=== PATIENT | female | born 1940 | race Caucasian/White ===

== ENCOUNTER 2016-10-20 09:57 | Inpatient (IN) | payer MEDICARE, OTHER ==
[~2016-10-20] VITALS: Ht 149.9 cm; Wt 68.5 kg
[2016-10-20] MEDS: LEVOTHYROXINE 0.075 MG TAB (75 MCG) PO SCH ×2 (06:00→16:07)
[2016-10-20] MEDS: SPIRONOLACTONE 25 MG TAB PO SCH (09:00)
[2016-10-20] MEDS: VITAMIN D 1,000 INTERNATIONAL UNITS TABLET PO SCH (09:00)
[2016-10-20] MEDS: FUROSEMIDE 40 MG TAB PO SCH (09:00)
[2016-10-20] MEDS: ASPIRIN 81 MG ENTERIC TAB PO SCH (09:00)
[2016-10-20] MEDS: MULTIVITAMINS/MINERALS THERAP 1 TAB PO SCH (09:00)
[~2016-10-20 09:57] MED LIST: /AMLO25TA PO; ACCU40TA PO; ADV250INH INH; ADV500INH INH; ALB2.5NEB INH; ALBU2TA GT; ALDA25TA2 PO; AMLO5TAB2 PO; ASPI81TA85 PO; CEFD1CAP8 PO; COMBAER6 INH; COMBIN INH; DOXA1TAB41 PO; DOXA2TAB PO; DUONSOL NEB; IPRA2IN INH; LASI40TA PO; LESC20CA PO; LEVO100T4 PO; LEVO75TA34 PO; LIVA1TAB PO; MUCI600T34 PO; NYST50SS SS; OXYGEN; PRED20TAB PO; QUIN40TA4 PO; SPIR1CAP INH; SPIR25TA2 PO; TYLE325T5 PO; TYLE650T30 PO; VITA2000 PO
[2016-10-20] MEDS ORDERED: VITA200016 PO (10:35)
[2016-10-20] MEDS ORDERED: ASPI1TAB PO (10:35)
[2016-10-20] MEDS ORDERED: DOXA1TAB71 PO (10:35)
[2016-10-20] MEDS ORDERED: SPIR25TA2 PO (10:35)
[2016-10-20] MEDS ORDERED: BREO1INH3 INH (10:35)
[2016-10-20] MEDS ORDERED: INCR1INH INH (10:35)
[2016-10-20] MEDS ORDERED: SYNT75TA PO (10:35)
[2016-10-20] MEDS ORDERED: PRED5TA PO (10:35)
[2016-10-20] MEDS ORDERED: [UNRECOGNIZED DRUG - CODE] PO (10:35)
[2016-10-20] MEDS ORDERED: OXYGEN (10:35)
[2016-10-20] MEDS ORDERED: LORA-376 PO (10:35)
[2016-10-20] MEDS ORDERED: CEFT500T3 PO (10:36)
[2016-10-20] MEDS ORDERED: PRED10TA PO (10:36)
[2016-10-20] MEDS ORDERED: methylPREDNISolone INJ 125 MG/2 ML VIAL (J2930) IV ONE (11:00)
[2016-10-20 11:37] LABS: MEAN CORPUSCULAR HEMOGLOBIN 29.9 pg (27.0-33.0); WHITE BLOOD COUNT 18.6 K/mm3 (4.0-10.0)
[2016-10-20 11:38] LABS: BASO # 0.1 K/mm3 (0.0-0.2); BASO % 0.3 % (0.0-1.0); EOS # 0.1 K/mm3 (0.0-0.50); EOS % 0.3 % (0.0-3.0); LARGE UNSTAINED CELL # 0.1 K/mm3 (0.0-0.4); LARGE UNSTAINED CELL % 0.5 % (0.0-4.0); LYMPH # 0.6 K/mm3 (1.5-4.5); MEAN CORPUSCULAR HGB CONC 29.6 g/dl (32.0-36.5); MONO # 0.5 K/mm3 (0.0-0.8); MONO % 2.9 % (0.0-5.0); NEUTROPHILS # 17.3 K/mm3 (1.8-7.7); PLATELET COUNT, AUTOMATED 219 k/mm3 (150-450); RED CELL DISTRIBUTION WIDTH 12.4 % (11.5-14.5)
[2016-10-20] MEDS: IPRATROPIUM 0.5MG/ALBUTEROL 2.5MG INH SOL UD 3ML (DUONEB)(J7620) NEB PRN ×3 (11:39→11:52)
[2016-10-20 11:40] LABS: ABG BASE EXCESS 23.8 (-2.0-2.0); ABG PARTIAL PRESSURE O2 63.2 mmHg (75.0-100.0); ABG STANDARD HCO3 48.9 MEQ/L (22.0-26.0); ABG TOTAL CO2 64.2 MEQ/L (23.0-31.0); ABG pH (ARTERIAL) 7.263 UNITS (7.350-7.450)
[2016-10-20 11:44] LABS: ABG PARTIAL PRESSURE CO2 135.9 mmHg (35.0-45.0)
[2016-10-20 11:47] LABS: BLOOD UREA NITROGEN 29 MG/DL (7-18); CALCIUM LEVEL 9.5 MG/DL (8.8-10.2); CHLORIDE LEVEL 84 MEQ/L (98-107); CREATININE FOR GFR 0.67 MG/DL (0.55-1.02); GLOMERULAR FILTRATION RATE > 60.0 (>39); GLUCOSE, FASTING 208 MG/DL (83-110); POTASSIUM SERUM 4.7 MEQ/L (3.5-5.1); SODIUM LEVEL 136 MEQ/L (136-145)
--- NOTE | 2016-10-20 11:48 | REP ---
AP PORTABLE CHEST: 10/20/2016 CLINICAL HISTORY: Dyspnea, cough. COMPARISON: 11/14/2014, 11/08/2014, 07/23/2014. FINDINGS: Lungs are hyperinflated. There is flattening of the diaphragms basilar fibrotic changes and COPD are noted. There are heavier fibrotic changes in the right than left base. Question of a small focal infiltrate or nodule in the right base. No effusion or pneumothorax. Heart not grossly enlarged. There is no vascular redistribution or edema. The aorta is calcified at the arch without aneurysm. Airway intact. Bony thorax without focal lesion. IMPRESSION: 1. 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 A superimposed patchy zone of infiltrate or nodular density right base. No effusion or pulmonary edema. Signed by Sergio Rign MD 10/20/2016 05:15 P
[2016-10-20 11:52] LABS: ALBUMIN 3.3 GM/DL (3.2-5.2); ALBUMIN/GLOBULIN RATIO 0.92 (1.00-1.93); BILIRUBIN,DIRECT 0.2 MG/DL (0.0-0.2); BILIRUBIN,TOTAL 0.7 MG/DL (0.2-1.0); TOTAL PROTEIN 6.9 GM/DL (6.4-8.2)
[2016-10-20 12:11] LABS: ANION GAP 2 MEQ/L (8-16)
[2016-10-20 12:14] LABS: CARBON DIOXIDE LEVEL 50 MEQ/L (21-32)
[2016-10-20] MEDS ORDERED: IPRATROPIUM 0.5MG/ALBUTEROL 2.5MG INH SOL UD 3ML (DUONEB)(J7620) NEB PRN (12:45)
[2016-10-20] MEDS ORDERED: PIPERACILLIN/TAZOBACTAM SOD 2.25 GM in D5W MINI-BAG PLUS 50 ML IV ONE (13:00)
[2016-10-20] MEDS: ACETAMINOPHEN TAB 650MG DOSE (2X325MG) PO PRN ×2 (13:01→19:57)
[2016-10-20] MEDS ORDERED: PRED20TA PO (13:08)
[2016-10-20] MEDS ORDERED: COLON CARE PO (13:08)
[2016-10-20] MEDS ORDERED: ASPI81TA21 PO (13:12)
[2016-10-20] MEDS ORDERED: VITMTA PO (13:12)
[2016-10-20] MEDS ORDERED: ROBA100S5 PO (13:15)
[2016-10-20] MEDS ORDERED: IPRASOL4 INH (13:17)
[2016-10-20 13:20] LABS: ABG BASE EXCESS 24.3 (-2.0-2.0); ABG HCO3 61.4 MEQ/L (22.0-26.0); ABG PARTIAL PRESSURE CO2 144.8 mmHg (35.0-45.0); ABG PARTIAL PRESSURE O2 70.9 mmHg (75.0-100.0); ABG STANDARD HCO3 49.7 MEQ/L (22.0-26.0); ABG TOTAL CO2 65.8 MEQ/L (23.0-31.0); ABG pH (ARTERIAL) 7.245 UNITS (7.350-7.450)
--- NOTE | 2016-10-20 14:05 | HPEPDOC ---
Medical History and Physical Date of Admission Oct 20, 2016 at 12:31 History and Physical ATTENDING: Dr. Tato Villanueva PCP: Dr Islas CC: SOB HPI: 75yoF with a past medical history significant for COPD, O2 dependent (5-6L) , uses BIPAP at home. Pt was recently treated as per PCP for COPD exacerbation as outpt with po ceftin and prednisone. Her dtr states there had been some improvement but pt was still having some chills and coughing yellow sputum. Today she got up and felt very fatigued. SOB was worse, EMS was called. O2 sat was found to be 81% on her usual 6L NC. Pt baseline 81-92. Nebs were given with minimal improvement. Denies any fevers, LEMA, CP, palpitations, abdominal pain, N/V/D or changes in bowel or bladder habits. Upon presentation to the hospital the patient was found to have acute on chronic respiratory failure, thus the hospitalist team was consulted. PMHx: COPD O2 5-6L/BIPAP. PANNY- Jazzy. Chronic resp failure HTN Hypothyroid Prior smoker Quit 06/19 HLD Diverticulosis Vit D Def NIDDM PSHX: ALXEI/BSO Appendectomy Colonoscopy 2001 SOCHX: Resides in: [place] Marital Status: Employment: Housewife Tobacco use: Quit 06/19 ETOH: denies Illicit Drugs: Denies Recent travel: denies Advanced directives: MOLST DNI per FAMHX: Mother: HTN Father: HTN Siblings: HTN ROS: Pt is on BIPAP in ED, denies pain. States breathing comfortable at this time. PE: GEN: 75yoF, appears stated age. Responds to voice. On BIPAP in ED. HEENT: Normocephalic, atraumatic. Pupils are equal, round, and reactive to light. Extraocular movements are intact. No nystagmus appreciated. Sclera are nonicteric. Conjunctiva without injection. Nose midline. Nasal turbinates without bogginess. No facial asymmetry. Moist mucous membranes. Dentition fair. Pharynx pink and moist, no cobblestoning. Neck supple, trachea midline. No lymphadenopathy or thyromegaly appreciated. CHEST: Regular rate and rhythm, +S1, +S2 LUNGS: Decreased BS bilaterally. Diffuse insp/exp wheezes, no rales, or rhonchi noted anteriorly. BIPAP. ABD: Round, soft, non-tender, non-distended. +Bowel sounds throughout. No rebound or guarding. No costovertebral angle tenderness. EXT: Pulses 2+ bilaterally dorsalis pedis and radial. No lower extremity edema appreciated. SKIN: [place], dry, warm. Capillary refill <2sec. No rashes. NEURO: Alert to voice. No focal deficits appreciated. 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 A superimposed patchy zone of infiltrate or nodular density right base. No effusion or pulmonary edema. EKG: SR. LAE, 93bpm. BLOOD CULTURES: x 2 pending A&P: 75yoF with a past medical history significant for COPD, O2 dependent (5-6L) , uses BIPAP at home. Pt was recently treated as per PCP for COPD exacerbation as outpt with po ceftin and prednisone. Her dtr states there had been some improvement but pt was still having some chills and coughing yellow sputum. Today she got up and felt very fatigued. SOB was worse, EMS was called. O2 sat was found to be 81% on her usual 6L NC. Pt baseline 81-92. Nebs were given with minimal improvement. The patient will be admitted to ICU for at least [address] Villanueva's service. Pt is discussed with Dr Archer. Acute on chronic respiratory Failure. Pulmonary to assist with BIPAP. Sputum Cx , resp panel, BC pending. O2/Nebs/IV Rocephin, Zithromax. IV Solumedrol. COPD. as above. Hypothyroid. Cont with Supplement. HTN. DVT prophylaxis. SQ Heparin states the patient is a DNI- Copy of [facility] requested Vital Signs Vital Signs Date Time Temp Pulse Resp B/P Pulse Ox O2 Delivery O2 Flow Rate FiO2 10/20/16 13:00 162/74 10/20/16 12:46 91 91 10/20/16 12:45 99.5 10/20/16 11:48 60 10/20/16 10:30 Nasal Cannula 5 10/20/16 10:13 20 Laboratory Data Labs 24H Laboratory Tests 2 10/20/16 11:14: Aspartate Amino Transf (AST/SGOT) 21, Alanine Aminotransferase (ALT/SGPT) 32, Alkaline Phosphatase 81, Total Bilirubin 0.7, Direct Bilirubin 0.2, Albumin 3.3 , Albumin/Globulin Ratio 0.92L, Anion Gap 2L, B-Type Natriuretic Peptide 82.2, White Blood Count 18.6H, Red Blood Count 5.24, Hemoglobin 15.7, Hematocrit 52.9H , Mean Corpuscular Volume 101.0H, Mean Corpuscular Hemoglobin 29.9, Mean Corpuscular Hemoglobin Concent 29.6L, Red Cell Distribution Width 12.4, Platelet Count 219, Neutrophils (%) (Auto) 93.0H, Lymphocytes (%) (Auto) 3.0L, Monocytes (%) (Auto) 2.9, Eosinophils (%) (Auto) 0.3, Basophils (%) (Auto) 0.3, Neutrophils # (Auto) 17.3H, Lymphocytes # (Auto) 0.6L, Monocytes # (Auto) 0.5, Eosinophils # (Auto) 0.1, Basophils # (Auto) 0.1, Blood Urea Nitrogen 29H, Creatinine 0.67, Sodium Level 136, Potassium Level 4.7, Chloride Level 84L, Carbon Dioxide Level 50H, Calcium Level 9.5, Total Creatine Kinase 56, Creatine Kinase MB 6.0H, Creatine Kinase MB Relative Index 10.71H, Glomerular Filtration Rate > 60.0, Lactic Acid Level 0.7, Large Unclassified Cells # 0.1, Large Unclassified Cells % 0.5, Thyroid Stimulating Hormone (TSH) 0.409, Total Protein 6.9, Troponin I 0.06 10/20/16 11:36: Arterial Blood pH 7.263L, Arterial Blood Partial Pressure CO2 135.9*H, Arterial Blood Partial Pressure O2 63.2L, Arterial Blood Total CO2 64.2H, Arterial Blood HCO3 60.0H, Arterial Blood Base Excess 23.8H, Arterial Blood Oxygen Saturation 90.3L, Blood Gas Bicarbonate Standard 48.9H 10/20/16 13:10: Arterial Blood pH 7.245*L, Arterial Blood Partial Pressure CO2 144.8*H, Arterial Blood Partial Pressure O2 70.9L, Arterial Blood Total CO2 65.8H, Arterial Blood HCO3 61.4H, Arterial Blood Base Excess 24.3H, Arterial Blood Oxygen Saturation 92.5L, Blood Gas Bicarbonate Standard 49.7H CBC/BMP Laboratory Tests 10/20/16 11:14 Calcium Level 9.5, Total Creatine Kinase 56, Red Blood Count 5.24, Mean Corpuscular Volume 101.0 H, Mean Corpuscular Hemoglobin 29.9, Mean Corpuscular Hemoglobin Concent 29.6 L, Red Cell Distribution Width 12.4, Neutrophils (%) ( Auto) 93.0 H, Lymphocytes (%) (Auto) 3.0 L, Monocytes (%) (Auto) 2.9, Eosinophils (%) (Auto) 0.3, Basophils (%) (Auto) 0.3, Neutrophils # (Auto) 17.3 H, Lymphocytes # (Auto) 0.6 L, Monocytes # (Auto) 0.5, Eosinophils # (Auto) 0.1 , Basophils # (Auto) 0.1 Microbiology Microbiology 10/20/16 Blood Culture, Received Pending 10/20/16 Blood Culture, Received Pending Home Medications Scheduled (Incruse Ellipta) 62.5 Mcg/Inh Inh 62.5 MCG INH DAILY ([colon care]) 200 MG PO DAILY (Robafen) 100 Mg/5 Ml Syp 10 ML PO BID 7AM,11AM Acetaminophen (Tylenol) 325 Mg Tab 650 MG PO Q4HP Albuterol/Ipratropium (Ipratropium Olmitz/Albut 0.5-2.5 (3) mg/3Ml) 1 Gareth Gareth 1 GARETH INH QID 7AM,11AM,3PM,7PM Aspirin (Aspir-Low) 81 Mg Tab 81 MG PO DAILY Cefuroxime Axetil (Ceftin) 500 Mg Tab 500 MG PO BID FILLED ON 10/14/16 FOR A 10 DAY SUPPPLY Doxazosin Mesylate (Doxazosin) 2 Mg Tab 2 MG PO DAILY Fluticasone/Vilanterol (Breo Ellipta 200-25 Mcg/INH) 1 Inh Inh 1 PUFF INH DAILY Furosemide (Lasix) 40 Mg Tab 40 MG PO DAILY Levothyroxine Sodium (Synthroid) 75 Mcg Tab 75 MCG PO QAM Multivitamins *[facility] STOCKED* (Thera M Plus *[facility] STOCKED*) 1 Tab Tab 1 TAB PO DAILY Prednisone (Prednisone) 20 Mg Tab 20 MG PO BID FILLED 10/07/16 FOR 14 DAY SUPPLY Spironolactone (Spironolactone) 25 Mg Tab 25 MG PO DAILY Vitamin D (Vitamin D) 2,000 Unit Cap 2,000 UNIT PO DAILY Scheduled PRN Lorazepam (Lorazepam) 0.5 Mg Tab 0.5 MG PO Q4H PRN PRN ANXIETY/AGITATION Allergies Coded Allergies: Atorvastatin (Unverified Adverse Reaction, Intermediate, MYALGIAS, 10/20/16 ) Pseudoephedrine (Unverified Adverse Reaction, Mild, FELT JITTERY, 10/12/12) Katie Cash Oct 20, 2016 14:05
--- NOTE | 2016-10-20 14:46 | ECGEPIP ---
Stationary ECG Study [facility] - ED Test Date: 2016-10-20 Pat Name: BRENNEN JARRETT Department: Room: [place] [address] Gender: F Appointment Specialist: jj : 1940 Requested By: Sugey Velasquez Order Number: [id number] Reading MD: Kemal Palmer Measurements Intervals [place] Rate: 93 P: 88 VA: 143 QRS: 87 QRSD: 94 T: 96 QT: 314 QTc: 392 Interpretive Statements SINUS RHYTHM POSSIBLE LEFT ATRIAL ENLARGEMENT BORDERLINE RIGHT AXIS DEVIATION SIMILAR TO 11/08/14 Electronically Signed On 10-20-2016 14:46:38 EDT by Kemal Palmer
--- NOTE | 2016-10-20 14:54 | CCN ---
DATE OF SERVICE: 10/20/2016 I was called the emergency department to evaluate this 75-year-old female who had been ill with infectious symptoms on an outpatient basis, being treated with steroid and antibiotic therapy. Symptoms worsened. An ambulance was summoned. She was found hypoxemic, placed on a nonrebreather mask, and brought to the emergency department. In the emergency department, she was placed on noninvasive positive pressure ventilation, and arterial blood gases are very abnormal. The patient is known to our service, following with Dr. Purcell on an outpatient basis for advanced obstructive airways disease. She has had prior admissions for acute hypoxic hypercarbic respiratory failure, the last in 2014. Most recent spirometric measures showed an FEV-1 of 0.33 or 19% of predicted. She is on bilevel therapy at night with supplemental oxygen (12 over 76 liters) for obstructive sleep apnea syndrome. Inhaled therapy on an ongoing basis includes Breo, Incruse, and DuoNebs. She is on oxygen at home at 4 liters. At bedside, her temperature is 99.5, pulse rate is 91, respirations 20, blood pressure 162/74. She is semi-responsive. HEENT: Oral and nasal mucosa are pink and moist. There is no stridor over the trachea. No adenopathy in the neck. Jugular veins are difficult to appreciate. There is a brisk carotid upstroke. Heart sounds are regular, distant. Breath sounds markedly diminished bilaterally. Expiratory phase is quite prolonged. The chest is increased in its AP diameter. There is a fine mid end-expiratory wheeze bilaterally. Accessory muscles are engaged during respiratory effort at rest. Abdomen is soft, obese, intact bowel sounds. Extremities: Show trace edema. Peripheral pulses are palpable times four. DIAGNOSTIC STUDIES: White cell count is 18.6 with 93% neutrophils, no bands are reported, hemoglobin 15.7, hematocrit 52.9, platelet count is 219,000. Her electrolytes are sodium 136, potassium 4.7, chloride 84, CO2 50, BUN 29, creatinine 0.64, glucose 208. The CPK is 6, MB fraction 10, troponin is less than 0.06. BNP 82, lactic acid 0.7. An arterial blood gas on admission showed a pH 7.26, pCO2 135.9, pO2 63. Subsequently, was placed on noninvasive ventilation. Most recent blood gas shows pH 7.24, pCO2 144, pO2 70. Chest x-ray imaging was reviewed. There is some change in the right lower lobe, difficult to determine if this is acute or chronic. Appears to have been present on most recent image in this system from 2014. There is no cardiomegaly. No obvious interstitial prominence. The diaphragms are quite flat. The primary problem requiring critical attention is acute hypoxic hypercarbic respiratory failure. We will adjust the noninvasive positive pressure ventilator to optimize the pressure window and recheck arterial blood gases. The patient has expressed and the family has reiterated her desire not to undergo intubation, mechanical ventilatory support. I have mentioned to them that we will do the best we can with the noninvasive ventilator. Abnormal x-rays. It is possible we may be dealing with a right lower lobe pneumonia. The patient was on antibiotics at home. Will initiate azithromycin with the ceftriaxone. She got a single dose of Zosyn in the emergency room (ER). Bronchospasm. On her previous admission in 2014, she required nebulized therapy with heliox to effect reversal of her bronchoconstriction. We will initiate this same protocol. Deep venous thrombosis (DVT) and ulcer prophylaxis will be addressed. The patient's condition is critical. Will facilitate transfer now to the intensive care unit. 88 minutes was spent in the provision of bedside critical care and coordination. The family has been updated on her status.
[2016-10-20] MEDS: methylPREDNISolone INJ 125 MG/2 ML VIAL (J2930) IV SCH ×2 (15:00→22:57)
[2016-10-20] MEDS: cefTRIAXone SOD 1 GM in D5W MINI-BAG PLUS 50 ML IV SCH (15:00)
[2016-10-20] MEDS: AZITHROMYCIN INJ 500 MG, VIAL MATE ADAPTER 1 EACH in D5W 250 ML IV SCH (15:00)
[2016-10-20] MEDS: IPRATROPIUM 0.5MG/ALBUTEROL 2.5MG INH SOL UD 3ML (DUONEB)(J7620) NEB SCH ×2 (15:41→19:46)
[2016-10-20 15:45] LABS: ABG BASE EXCESS 25.2 (-2.0-2.0); ABG PARTIAL PRESSURE O2 74.5 mmHg (75.0-100.0); ABG STANDARD HCO3 50.7 MEQ/L (22.0-26.0); ABG TOTAL CO2 65.1 MEQ/L (23.0-31.0); ABG pH (ARTERIAL) 7.275 UNITS (7.350-7.450)
[2016-10-20 15:46] LABS: ABG PARTIAL PRESSURE CO2 134.3 mmHg (35.0-45.0)
[2016-10-20 16:00] VITALS: BP 140/64
[2016-10-20 17:00] VITALS: BP 108/53
[2016-10-20 18:00] VITALS: BP 109/69
[2016-10-20 19:00] VITALS: BP 110/61
[2016-10-20] MEDS: HEPARIN SOD (PORCINE) 5000 UNITS/ML VIAL SQ SCH (19:57)
[2016-10-20 20:00] VITALS: BP 112/80
[2016-10-20 22:00] VITALS: BP 105/64
[2016-10-21] VITALS (18 sets, daily range): BP systolic 96–139; BP diastolic 53–85; O2SAT 90
[2016-10-21] MEDS: IPRATROPIUM 0.5MG/ALBUTEROL 2.5MG INH SOL UD 3ML (DUONEB)(J7620) NEB SCH ×4 (01:38→19:39)
[2016-10-21] MEDS: ACETAMINOPHEN TAB 650MG DOSE (2X325MG) PO PRN ×2 (03:33→21:03)
[2016-10-21 06:05] LABS: ABG BASE EXCESS 23.2 (-2.0-2.0); ABG HCO3 55.8 MEQ/L (22.0-26.0); ABG PARTIAL PRESSURE O2 77.5 mmHg (75.0-100.0); ABG STANDARD HCO3 48.3 MEQ/L (22.0-26.0); ABG TOTAL CO2 58.9 MEQ/L (23.0-31.0); ABG pH (ARTERIAL) 7.353 UNITS (7.350-7.450)
[2016-10-21 06:08] LABS: ABG PARTIAL PRESSURE CO2 102.6 mmHg (35.0-45.0)
[2016-10-21] MEDS: LEVOTHYROXINE 0.075 MG TAB (75 MCG) PO SCH (06:08)
[2016-10-21] MEDS: methylPREDNISolone INJ 125 MG/2 ML VIAL (J2930) IV SCH ×3 (06:11→22:59)
[2016-10-21 06:21] LABS: BASO % 0.2 % (0.0-1.0); EOS % 0.3 % (0.0-3.0); LARGE UNSTAINED CELL % 0.3 % (0.0-4.0); LYMPH # 0.5 K/mm3 (1.5-4.5); LYMPH % 3.7 % (24.0-44.0); MEAN CORPUSCULAR HEMOGLOBIN 30.1 pg (27.0-33.0); MEAN CORPUSCULAR HGB CONC 29.9 g/dl (32.0-36.5); MEAN CORPUSCULAR VOLUME 100.5 fl (80.0-96.0); MONO # 0.3 K/mm3 (0.0-0.8); MONO % 2.7 % (0.0-5.0); NEUTROPHILS # 11.5 K/mm3 (1.8-7.7); NEUTROPHILS % 92.7 % (36.0-66.0); PLATELET COUNT, AUTOMATED 178 k/mm3 (150-450); RED CELL DISTRIBUTION WIDTH 12.4 % (11.5-14.5); WHITE BLOOD COUNT 12.4 K/mm3 (4.0-10.0)
[2016-10-21 06:39] LABS: ALBUMIN 2.8 GM/DL (3.2-5.2); ALBUMIN/GLOBULIN RATIO 0.88 (1.00-1.93); ALKALINE PHOSPHATASE 68 U/L (45-117); ALT/SGPT 35 U/L (12-78); AST/SGOT 19 U/L (15-37); BILIRUBIN,TOTAL 0.5 MG/DL (0.2-1.0); BLOOD UREA NITROGEN 25 MG/DL (7-18); CALCIUM LEVEL 8.9 MG/DL (8.8-10.2); CHLORIDE LEVEL 85 MEQ/L (98-107); CHOLESTEROL LEVEL 187 MG/DL (< 200); GLOMERULAR FILTRATION RATE > 60.0 (>39); GLUCOSE, FASTING 201 MG/DL (83-110); PHOSPHORUS LEVEL 2.6 MG/DL (2.5-4.9); POTASSIUM SERUM 4.8 MEQ/L (3.5-5.1); SODIUM LEVEL 135 MEQ/L (136-145); TRIGLYCERIDES LEVEL 124 MG/DL (<150)
[2016-10-21 07:02] LABS: ANION GAP 4 MEQ/L (8-16); CARBON DIOXIDE LEVEL 46 MEQ/L (21-32)
--- NOTE | 2016-10-21 08:58 | REP ---
REASON: Respiratory failure. COMPARISON: Multiples, the latest 10/20/2016 also a portable. The technique utilized in obtaining the radiograph has magnified the cardiac silhouette and accentuated the interstitial markings. Persistent bibasilar patchy opacities are noted status quo. The cardiomediastinal silhouette is unchanged. There are no new opacities since the last exam. There is no change in the osseous structures. IMPRESSION: No change from yesterday. Signed by José Kong DO 10/21/2016 09:02 A
[2016-10-21] MEDS: HEPARIN SOD (PORCINE) 5000 UNITS/ML VIAL SQ SCH ×2 (09:28→21:03)
[2016-10-21] MEDS: MULTIVITAMINS/MINERALS THERAP 1 TAB PO SCH (09:28)
[2016-10-21] MEDS: FUROSEMIDE 40 MG TAB PO SCH (09:28)
[2016-10-21] MEDS: ASPIRIN 81 MG ENTERIC TAB PO SCH (09:28)
[2016-10-21] MEDS: VITAMIN D 1,000 INTERNATIONAL UNITS TABLET PO SCH (09:28)
[2016-10-21] MEDS: PANTOPRAZOLE 40MG INJ (PROTONIX) (C9113) IV SCH (09:28)
[2016-10-21] MEDS: SPIRONOLACTONE 25 MG TAB PO SCH (09:29)
[2016-10-21] MEDS: guaiFENesin ER 600 MG TAB PO SCH ×2 (12:33→21:03)
[2016-10-21] MEDS ORDERED: SLF 3 ML SYR IV PRN (14:15)
[2016-10-21] MEDS: AZITHROMYCIN INJ 500 MG, VIAL MATE ADAPTER 1 EACH in D5W 250 ML IV SCH (14:21)
--- NOTE | 2016-10-21 14:21 | CCN ---
DATE: 10/21/2016 CRITICAL CARE NOTE: The patient is seen in the intensive care unit on noninvasive positive pressure ventilation, more responsive, tolerating the mask well. She is able to speak in short sentences and is complaining of hunger. At bedside her temperature is 100.8, pulse rate 80, respirations 16, blood pressure 137/63, oxygen saturation 89% on 45% oxygen delivered through the noninvasive ventilator. Intake and output for the past 24 hours: 50 mL in, 300 mL out, since midnight 120 in, 0 out. She is ill-appearing. Oral mucosa are pink. Neck is supple. No meningismus. Heart sounds are regular. Breath sounds diminished bilaterally. There is some expiratory wheeze in the right upper lobe. Abdomen is soft with intact bowel sounds. Extremities show some edema. DIAGNOSTIC STUDIES: White cell count is down to 12.4, hemoglobin 14.7, hematocrit 49.1, platelet count is down to 178. Differential white cell count shows 92% neutrophils. Electrolytes are sodium 135, potassium 4.8, chloride 85, CO2 46, BUN 25, creatinine 0.6, glucose 201. Arterial blood gases show pH 7.35, pCO2 102, pO2 77. Chest x-ray continues to show hyperinflation and some chronic changes in the right base. Sputum studies are pending. The primary problem requiring critical attention is acute hypoxic hypercarbic respiratory failure. The patient has responded to noninvasive positive pressure ventilation and we will reduce the pressures and allow her off the mask for periods of time to eat. Bronchospasm. The patient's airways are more patent this morning with use of EzPAP and heliox for delivery. Will continue this approach. Pneumonia / respiratory infection. The patient's respiratory virus panel reveals respiratory syncytial virus. We are empirically treating her with ceftriaxone and azithromycin and this is day #2. Will continue broad-spectrum antibiotic therapy. Deep venous thrombosis (DVT) and ulcer prophylaxis are in place. Condition remains critical. Prognosis is guarded. 58 minutes was spent in the provision of bedside critical care and coordination.
--- NOTE | 2016-10-21 15:02 | IPNPDOC ---
Subjective Date Seen The patient was seen on 10/21/16. Subjective Chief Complaint/HPI The patient is a 75-year-old female admitted with a reason for visit of Respiratory Failure Acute And Chronic. Events since last encounter Patient is doing better today, although very fatigued after being off of BiPAP for eating. Denies any fevers, chills, sweats, chest pain her chest pressure. Constitutional: Denies: Chills, Fever, Malaise Pulmonary: Reports: Cough, Dyspnea Cardiovascular: Denies: Chest Pain, Palpitations Gastrointestinal: Denies: Abdominal Pain, Constipation, Diarrhea, Nausea, Vomiting Genitourinary: Denies: Dysuria Other systems 10 point review systems otherwise negative Objective Physical Examination General Exam: Positive: Alert, Cooperative, No Acute Distress, Other (on BiPAP) Eye Exam: Positive: Conjunctiva & lids normal ENT Exam: Positive: Mucous membr. moist/pink Neck Exam: Positive: Supple, Negative: JVD, thyromegaly Chest Exam: Positive: Diminished, Wheezing (bilateral wheezing), Negative: Clear to auscultation, Normal air movement (decreased air movement throughout) Heart Exam: Positive: Murmurs (one out of 6 systolic ejection murmur), Normal S1, Normal S2, Rate Normal Abdomen Exam: Positive: Normal bowel sounds, Soft, Negative: Hepatospenomegaly, Tenderness Extremity Exam: Positive: Normal pulses, Negative: Clubbing, Cyanosis, Edema Skin Exam: Positive: Nl turgor and temperature Psych Exam: Positive: Mental status NL, Mood NL, Oriented x 3 Assessment /Plan Problems (1) Acute on chronic respiratory failure with hypercapnia Status: Acute Problem Specific Plan: Consult Specialist Problem Text: Patient is here with acute on chronic hypercapnic respiratory failure secondary to RSV, and possible right lower lobe pneumonia. She has been requiring BiPAP, and is currently being co-managed by critical care. Her respiratory status is improved somewhat today, and she has been able to come off of BiPAP in order to eat. However, her ABG Continues to show significant hypercapnia, with pH 7.353, PCO2 102.6, PO2 77.5, bicarbonate 55.8, base excess 23.2. Patient temp to 100.8 this a.m., but white count is down trending. -Continue respiratory support per critical care -Continue empiric ceftriaxone/azithromycin -Continue IV Solu-Medrol 80 mg every 8 hours -RTQ6H duonemartina (2) COPD exacerbation Status: Acute Problem Text: Chronic hypoxic respiratory failure secondary to COPD, with emphysematous changes. Patient is on 6 L home oxygen. Patient is on Incruse ellipta at home. - Changed to Advair HFA inpatient -Continue systemic steroids (3) RSV (respiratory syncytial virus infection) Status: Acute Problem Text: See above (4) HTN (hypertension) Status: Chronic Problem Text: Blood pressure currently controlled. -Continue home Lasix 40 mg daily -Continue home spironolactone 25 g daily (5) Hypothyroidism (acquired) Status: Acute Problem Text: Continue home levothyroxine 75 mcg daily Plan/VTE VTE Prophylaxis Ordered?: Yes (heparin) Disposition Patient continues to be severely hypercapnic, requiring BiPAP support. She may be able to transition to PCU tomorrow VS, [facility] Vital Signs/I&O Vital Signs Date Time Temp Pulse Resp B/P Pulse Ox O2 Delivery O2 Flow Rate FiO2 10/21/16 12:00 Nasal Cannula 6.0 10/21/16 11:30 45 10/21/16 10:00 87 16 109/53 89 10/21/16 08:00 100.8 I&O- Last 24 Hours up to 6 AM 10/21/16 06:00 Intake Total 50 ml Output Total 300 ml Balance -250 ml Laboratory Data 24H LABS Laboratory Tests 2 10/20/16 15:37: Arterial Blood pH 7.275L, Arterial Blood Partial Pressure CO2 134.3*H, Arterial Blood Partial Pressure O2 74.5L, Arterial Blood Total CO2 65.1H, Arterial Blood HCO3 61.0H, Arterial Blood Base Excess 25.2H, Arterial Blood Oxygen Saturation 94.3L, Blood Gas Bicarbonate Standard 50.7H 10/20/16 18:01: Creatine Kinase MB 5.9H, Creatine Kinase MB Relative Index 12.55H, Total Creatine Kinase 47, Troponin I 0.06 10/21/16 00:07: Creatine Kinase MB 3.6, Creatine Kinase MB Relative Index 6.20H, Total Creatine Kinase 58, Troponin I 0.04# 10/21/16 05:41: Arterial Blood pH 7.353, Arterial Blood Partial Pressure CO2 102.6*H, Arterial Blood Partial Pressure O2 77.5, Arterial Blood Total CO2 58.9H, Arterial Blood HCO3 55.8H, Arterial Blood Base Excess 23.2H, Arterial Blood Oxygen Saturation 95.7, Blood Gas Bicarbonate Standard 48.3H 10/21/16 06:00: Blood Urea Nitrogen 25H, Creatinine 0.60, Sodium Level 135L, Potassium Level 4.8 , Chloride Level 85L, Carbon Dioxide Level 46H, Calcium Level 8.9, Phosphorus Level 2.6, Aspartate Amino Transf (AST/SGOT) 19, Alanine Aminotransferase (ALT/ SGPT) 35, Lactate Dehydrogenase 215, Total Creatine Kinase 63, Alkaline Phosphatase 68, Total Bilirubin 0.5, Triglycerides Level 124, Cholesterol Level 187, Total Protein 6.0L, Albumin 2.8L, Albumin/Globulin Ratio 0.88L, Anion Gap 4L, White Blood Count 12.4H, Red Blood Count 4.88, Hemoglobin 14.7, Hematocrit 49.1H, Mean Corpuscular Volume 100.5H, Mean Corpuscular Hemoglobin 30.1, Mean Corpuscular Hemoglobin Concent 29.9L, Red Cell Distribution Width 12.4, Platelet Count 178, Neutrophils (%) (Auto) 92.7H, Lymphocytes (%) (Auto) 3.7L, Monocytes (%) (Auto) 2.7, Eosinophils (%) (Auto) 0.3, Basophils (%) (Auto) 0.2, Neutrophils # (Auto) 11.5H, Lymphocytes # (Auto) 0.5L, Monocytes # (Auto) 0.3, Eosinophils # (Auto) 0.0, Basophils # (Auto) 0.0, Creatine Kinase MB 3.6, Creatine Kinase MB Relative Index 5.71H, Glomerular Filtration Rate > 60.0, Large Unclassified Cells # 0.0, Large Unclassified Cells % 0.3, Troponin I 0.06# CBC/BMP Laboratory Tests 10/21/16 06:00 Calcium Level 8.9, Phosphorus Level 2.6, Aspartate Amino Transf (AST/SGOT) 19, Alanine Aminotransferase (ALT/SGPT) 35, Lactate Dehydrogenase 215, Total Creatine Kinase 63, Alkaline Phosphatase 68, Total Bilirubin 0.5, Triglycerides Level 124, Cholesterol Level 187, Total Protein 6.0 L, Albumin 2.8 L, Red Blood Count 4.88, Mean Corpuscular Volume 100.5 H, Mean Corpuscular Hemoglobin 30.1, Mean Corpuscular Hemoglobin Concent 29.9 L, Red Cell Distribution Width 12.4, Neutrophils (%) (Auto) 92.7 H, Lymphocytes (%) (Auto) 3.7 L, Monocytes (%) (Auto ) 2.7, Eosinophils (%) (Auto) 0.3, Basophils (%) (Auto) 0.2, Neutrophils # (Auto ) 11.5 H, Lymphocytes # (Auto) 0.5 L, Monocytes # (Auto) 0.3, Eosinophils # ( Auto) 0.0, Basophils # (Auto) 0.0 Microbiology Microbiology 10/20/16 Blood Culture - Preliminary, Resulted No growth after 24 hours . All specim... 10/20/16 Blood Culture - Preliminary, Resulted No growth after 24 hours . All specim... 10/20/16 Influenza Virus Type A Antigen - Final, Complete 10/20/16 Influenza Virus Type B Antigen - Final, Complete 10/20/16 Respiratory Virus Panel (PCR) ([facility]) - Final, Complete Respiratory Syncytial Virus 10/20/16 Urine Culture - Final, Complete ALBERTA SPRING MD Oct 21, 2016 15:01
[2016-10-21] MEDS: cefTRIAXone SOD 1 GM in D5W MINI-BAG PLUS 50 ML IV SCH (15:49)
[2016-10-21] MEDS: ADVAIR HFA 230/21 INHALER INH SCH (20:13)
[2016-10-21] MEDS: SLF 3 ML SYR IV SCH (21:04)
[2016-10-22] VITALS (21 sets, daily range): BP systolic 114–158; BP diastolic 58–100; O2SAT 90–93
[2016-10-22] MEDS: IPRATROPIUM 0.5MG/ALBUTEROL 2.5MG INH SOL UD 3ML (DUONEB)(J7620) NEB SCH ×4 (01:43→18:34)
[2016-10-22 05:31] LABS: BASO % 0.2 % (0.0-1.0); EOS % 0.3 % (0.0-3.0); LARGE UNSTAINED CELL # 0.1 K/mm3 (0.0-0.4); LARGE UNSTAINED CELL % 0.8 % (0.0-4.0); LYMPH # 0.3 K/mm3 (1.5-4.5); LYMPH % 2.9 % (24.0-44.0); MEAN CORPUSCULAR HEMOGLOBIN 29.1 pg (27.0-33.0); MEAN CORPUSCULAR VOLUME 100.4 fl (80.0-96.0); MONO # 0.3 K/mm3 (0.0-0.8); MONO % 2.5 % (0.0-5.0); NEUTROPHILS # 9.8 K/mm3 (1.8-7.7); NEUTROPHILS % 93.3 % (36.0-66.0); PLATELET COUNT, AUTOMATED 167 k/mm3 (150-450); RED CELL DISTRIBUTION WIDTH 12.7 % (11.5-14.5); WHITE BLOOD COUNT 10.5 K/mm3 (4.0-10.0)
[2016-10-22 05:54] LABS: ALBUMIN 2.7 GM/DL (3.2-5.2); ALBUMIN/GLOBULIN RATIO 0.82 (1.00-1.93); ALKALINE PHOSPHATASE 67 U/L (45-117); ALT/SGPT 34 U/L (12-78); AST/SGOT 23 U/L (15-37); BILIRUBIN,TOTAL 0.5 MG/DL (0.2-1.0); BLOOD UREA NITROGEN 31 MG/DL (7-18); CALCIUM LEVEL 9.2 MG/DL (8.8-10.2); CHLORIDE LEVEL 82 MEQ/L (98-107); CHOLESTEROL LEVEL 199 MG/DL (< 200); CREATININE FOR GFR 0.54 MG/DL (0.55-1.02); GLOMERULAR FILTRATION RATE > 60.0 (>39); GLUCOSE, FASTING 213 MG/DL (83-110); POTASSIUM SERUM 4.3 MEQ/L (3.5-5.1); SODIUM LEVEL 134 MEQ/L (136-145); TRIGLYCERIDES LEVEL 132 MG/DL (<150)
[2016-10-22] MEDS: methylPREDNISolone INJ 125 MG/2 ML VIAL (J2930) IV SCH ×3 (06:02→23:23)
[2016-10-22] MEDS: SLF 3 ML SYR IV SCH ×3 (06:02→21:31)
[2016-10-22] MEDS: LEVOTHYROXINE 0.075 MG TAB (75 MCG) PO SCH (06:03)
[2016-10-22 06:11] LABS: CARBON DIOXIDE LEVEL 55 MEQ/L (21-32)
[2016-10-22 06:12] LABS: ABG BASE EXCESS 25.1 (-2.0-2.0); ABG HCO3 57.8 MEQ/L (22.0-26.0); ABG PARTIAL PRESSURE O2 67.5 mmHg (75.0-100.0); ABG STANDARD HCO3 50.6 MEQ/L (22.0-26.0); ABG TOTAL CO2 60.9 MEQ/L (23.0-31.0); ABG pH (ARTERIAL) 7.374 UNITS (7.350-7.450)
[2016-10-22 06:13] LABS: ABG PARTIAL PRESSURE CO2 101.3 mmHg (35.0-45.0)
[2016-10-22] MEDS: guaiFENesin ER 600 MG TAB PO SCH ×2 (08:08→21:30)
[2016-10-22] MEDS: SPIRONOLACTONE 25 MG TAB PO SCH (08:08)
[2016-10-22] MEDS: ASPIRIN 81 MG ENTERIC TAB PO SCH (08:08)
[2016-10-22] MEDS: VITAMIN D 1,000 INTERNATIONAL UNITS TABLET PO SCH (08:08)
[2016-10-22] MEDS: MULTIVITAMINS/MINERALS THERAP 1 TAB PO SCH (08:09)
[2016-10-22] MEDS: PANTOPRAZOLE 40MG INJ (PROTONIX) (C9113) IV SCH (08:09)
[2016-10-22] MEDS: FUROSEMIDE 40 MG TAB PO SCH (08:09)
[2016-10-22] MEDS: HEPARIN SOD (PORCINE) 5000 UNITS/ML VIAL SQ SCH ×2 (08:10→21:30)
--- NOTE | 2016-10-22 08:47 | REP ---
AP PORTABLE CHEST: 10/22/2016. Comparison: 10/21/2016, 10/20/2016. Clinical history: Respiratory failure. Findings: Hyperinflation with changes of COPD noted. Heavy basilar fibrotic changes are noted and superimposed patchy right greater than left opacities are unchanged. There is no blunting of CP angles to suggest effusion. No cardiomegaly or edema. Pulmonary arteries are prominent centrally consistent with pulmonary artery hypertension. There are bullous emphysematous changes in the mid and upper lung zones and apical pleural scarring. Impression: 1. COPD, fibrosis, bullous emphysematous changes and basilar fibrotic changes, right greater than left. Superimposed patchy opacities right greater than left, unchanged. No air bronchograms. No definite effusion. Signed by Sergio Ring MD 10/22/2016 03:26 P
[2016-10-22] MEDS: ADVAIR HFA 230/21 INHALER INH SCH ×2 (09:31→20:18)
[2016-10-22] MEDS: NYSTATIN 500,000 U/5 ML SUSP UDC SS SCH ×4 (11:39→21:30)
[2016-10-22] MEDS: AZITHROMYCIN INJ 500 MG, VIAL MATE ADAPTER 1 EACH in D5W 250 ML IV SCH (13:53)
[2016-10-22] MEDS: cefTRIAXone SOD 1 GM in D5W MINI-BAG PLUS 50 ML IV SCH (15:00)
--- NOTE | 2016-10-22 19:40 | IPNPDOC ---
Subjective Date Seen The patient was seen on 10/22/16. Subjective Chief Complaint/HPI The patient is a 75-year-old female admitted with a reason for visit of Respiratory Failure Acute And Chronic. Events since last encounter Patient's respiratory status remains stable today, and mildly improved. Patient remains on BiPAP, and states that she is still quite fatigued. She denies any fevers. She has no other complaints or concerns. Constitutional: Reports: Fatigue, Denies: Chills, Fever, Malaise Pulmonary: Reports: Cough, Dyspnea Cardiovascular: Denies: Chest Pain, Orthopnea, Palpitations Gastrointestinal: Denies: Abdominal Pain, Constipation, Diarrhea, Nausea, Vomiting Genitourinary: Denies: Dysuria Other systems 10 point review systems otherwise negative Objective Physical Examination General Exam: Positive: Alert, Cooperative, No Acute Distress, Other (on BiPAP) Eye Exam: Positive: Conjunctiva & lids normal ENT Exam: Positive: Mucous membr. moist/pink Neck Exam: Positive: Supple, Negative: JVD, thyromegaly Chest Exam: Positive: Diminished, Wheezing (bilateral wheezing), Negative: Clear to auscultation, Normal air movement (decreased air movement throughout) Heart Exam: Positive: Murmurs (one out of 6 systolic ejection murmur), Normal S1, Normal S2, Rate Normal Abdomen Exam: Positive: Normal bowel sounds, Soft, Negative: Hepatospenomegaly, Tenderness Extremity Exam: Positive: Normal pulses, Negative: Clubbing, Cyanosis, Edema Skin Exam: Positive: Nl turgor and temperature Psych Exam: Positive: Mental status NL, Mood NL, Oriented x 3 Assessment /Plan Problems (1) Acute on chronic respiratory failure with hypercapnia Status: Acute Problem Specific Plan: Consult Specialist Problem Text: Patient is here with acute on chronic hypercapnic respiratory failure secondary to RSV, and possible right lower lobe pneumonia. She has been requiring BiPAP, and is currently being co-managed by critical care. Her respiratory status is improved somewhat today, and she has been able to come off of BiPAP in order to eat. However, her ABG Continues to show significant hypercapnia. Last fever on the a.m. of 10/21/2016. White count down trending rapidly. 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 Patient is on 6 L home oxygen. Patient is on Incruse ellipta at home. - Changed to Advair HFA inpatient -Continue systemic steroids (3) RSV (respiratory syncytial virus infection) Status: Acute Problem Text: See above (4) HTN (hypertension) Status: Chronic Problem Text: Blood pressure currently controlled. -Continue home Lasix 40 mg daily -Continue home spironolactone 25 g daily (5) Hypothyroidism (acquired) Status: Acute Problem Text: Continue home levothyroxine 75 mcg daily Plan/VTE VTE Prophylaxis Ordered?: Yes (heparin) VS, I&O, 24H, [facility], [facility] Vital Signs/I&O Vital Signs Date Time Temp Pulse Resp B/P Pulse Ox O2 Delivery O2 Flow Rate FiO2 10/22/16 18:00 90 20 158/70 84 NIPPV (BIPAP/CPAP) 35 10/22/16 16:01 98.3 10/22/16 08:00 5.0 I&O- Last 24 Hours up to 6 AM 10/22/16 06:00 Intake Total 1280 ml Output Total 425 ml Balance 855 ml Laboratory Data 24H LABS Laboratory Tests 2 10/22/16 05:07: Blood Urea Nitrogen 31H, Creatinine 0.54L, Sodium Level 134L, Potassium Level 4.3, Chloride Level 82L, Carbon Dioxide Level 55H, Calcium Level 9.2, Phosphorus Level 3.0, Aspartate Amino Transf (AST/SGOT) 23, Alanine Aminotransferase (ALT/SGPT) 34, Lactate Dehydrogenase 219, Total Creatine Kinase 59, Alkaline Phosphatase 67, Total Bilirubin 0.5, Triglycerides Level 132 , Cholesterol Level 199, Total Protein 6.0L, Albumin 2.7L, Albumin/Globulin Ratio 0.82L, Anion Gap , White Blood Count 10.5H, Red Blood Count 5.19, Hemoglobin 15.1, Hematocrit 52.1H, Mean Corpuscular Volume 100.4H, Mean Corpuscular Hemoglobin 29.1, Mean Corpuscular Hemoglobin Concent 29.0L, Red Cell Distribution Width 12.7, Platelet Count 167, Neutrophils (%) (Auto) 93.3H, Lymphocytes (%) (Auto) 2.9L, Monocytes (%) (Auto) 2.5, Eosinophils (%) (Auto) 0.3, Basophils (%) (Auto) 0.2, Neutrophils # (Auto) 9.8H, Lymphocytes # (Auto) 0.3L, Monocytes # (Auto) 0.3, Eosinophils # (Auto) 0.0, Basophils # (Auto) 0.0, Glomerular Filtration Rate > 60.0, Large Unclassified Cells # 0.1, Large Unclassified Cells % 0.8 10/22/16 05:52: Arterial Blood pH 7.374, Arterial Blood Partial Pressure CO2 101.3*H, Arterial Blood Partial Pressure O2 67.5L, Arterial Blood Total CO2 60.9H, Arterial Blood HCO3 57.8H, Arterial Blood Base Excess 25.1H, Arterial Blood Oxygen Saturation 93.3L, Blood Gas Bicarbonate Standard 50.6H CBC/BMP Laboratory Tests 10/22/16 05:07 Calcium Level 9.2, Phosphorus Level 3.0, Aspartate Amino Transf (AST/SGOT) 23, Alanine Aminotransferase (ALT/SGPT) 34, Lactate Dehydrogenase 219, Total Creatine Kinase 59, Alkaline Phosphatase 67, Total Bilirubin 0.5, Triglycerides Level 132, Cholesterol Level 199, Total Protein 6.0 L, Albumin 2.7 L, Red Blood Count 5.19, Mean Corpuscular Volume 100.4 H, Mean Corpuscular Hemoglobin 29.1, Mean Corpuscular Hemoglobin Concent 29.0 L, Red Cell Distribution Width 12.7, Neutrophils (%) (Auto) 93.3 H, Lymphocytes (%) (Auto) 2.9 L, Monocytes (%) (Auto ) 2.5, Eosinophils (%) (Auto) 0.3, Basophils (%) (Auto) 0.2, Neutrophils # (Auto ) 9.8 H, Lymphocytes # (Auto) 0.3 L, Monocytes # (Auto) 0.3, Eosinophils # (Auto ) 0.0, Basophils # (Auto) 0.0 Microbiology Microbiology 10/20/16 Blood Culture - Preliminary, Resulted No Growth after 48 hours. All Specime... 10/20/16 Blood Culture - Preliminary, Resulted No Growth after 48 hours. All Specime... 10/20/16 Influenza Virus Type A Antigen - Final, Complete 10/20/16 Influenza Virus Type B Antigen - Final, Complete 10/20/16 Respiratory Virus Panel (PCR) ([facility]) - Final, Complete Respiratory Syncytial Virus 10/20/16 Urine Culture - Final, Complete ALBERTA SPRING MD Oct 22, 2016 19:40
[2016-10-23] VITALS (20 sets, daily range): BP systolic 107–164; BP diastolic 52–103; O2SAT 89–92
[2016-10-23] MEDS: IPRATROPIUM 0.5MG/ALBUTEROL 2.5MG INH SOL UD 3ML (DUONEB)(J7620) NEB SCH ×4 (01:33→20:00)
[2016-10-23 05:37] LABS: BASO % 0.4 % (0.0-1.0); EOS % 0.6 % (0.0-3.0); LARGE UNSTAINED CELL # 0.1 K/mm3 (0.0-0.4); LARGE UNSTAINED CELL % 0.8 % (0.0-4.0); LYMPH # 0.4 K/mm3 (1.5-4.5); LYMPH % 4.3 % (24.0-44.0); MEAN CORPUSCULAR HEMOGLOBIN 29.9 pg (27.0-33.0); MEAN CORPUSCULAR HGB CONC 29.9 g/dl (32.0-36.5); MEAN CORPUSCULAR VOLUME 99.8 fl (80.0-96.0); MONO # 0.2 K/mm3 (0.0-0.8); MONO % 2.2 % (0.0-5.0); NEUTROPHILS % 91.8 % (36.0-66.0); PLATELET COUNT, AUTOMATED 140 k/mm3 (150-450); RED CELL DISTRIBUTION WIDTH 12.6 % (11.5-14.5); WHITE BLOOD COUNT 8.7 K/mm3 (4.0-10.0)
[2016-10-23 05:45] LABS: ALBUMIN 2.5 GM/DL (3.2-5.2); ALBUMIN/GLOBULIN RATIO 0.76 (1.00-1.93); ALKALINE PHOSPHATASE 65 U/L (45-117); ALT/SGPT 31 U/L (12-78); AST/SGOT 18 U/L (15-37); BILIRUBIN,TOTAL 0.4 MG/DL (0.2-1.0); BLOOD UREA NITROGEN 31 MG/DL (7-18); CALCIUM LEVEL 8.9 MG/DL (8.8-10.2); CHLORIDE LEVEL 83 MEQ/L (98-107); CHOLESTEROL LEVEL 199 MG/DL (< 200); CREATININE FOR GFR 0.58 MG/DL (0.55-1.02); GLOMERULAR FILTRATION RATE > 60.0 (>39); GLUCOSE, FASTING 234 MG/DL (83-110); PHOSPHORUS LEVEL 2.8 MG/DL (2.5-4.9); POTASSIUM SERUM 4.4 MEQ/L (3.5-5.1); SODIUM LEVEL 138 MEQ/L (136-145); TOTAL PROTEIN 5.8 GM/DL (6.4-8.2); TRIGLYCERIDES LEVEL 158 MG/DL (<150)
[2016-10-23 06:04] LABS: CARBON DIOXIDE LEVEL 58 MEQ/L (21-32)
[2016-10-23] MEDS: methylPREDNISolone INJ 125 MG/2 ML VIAL (J2930) IV SCH ×2 (06:22→18:17)
[2016-10-23] MEDS: LEVOTHYROXINE 0.075 MG TAB (75 MCG) PO SCH (06:23)
[2016-10-23] MEDS: LevoFLOXacin 750 MG TABLET PO SCH (06:23)
[2016-10-23] MEDS: SLF 3 ML SYR IV SCH ×3 (06:23→21:15)
[2016-10-23] MEDS: NYSTATIN 500,000 U/5 ML SUSP UDC SS SCH ×4 (08:01→21:13)
[2016-10-23] MEDS: FUROSEMIDE 40 MG TAB PO SCH (08:01)
[2016-10-23] MEDS: MULTIVITAMINS/MINERALS THERAP 1 TAB PO SCH (08:02)
[2016-10-23] MEDS: HEPARIN SOD (PORCINE) 5000 UNITS/ML VIAL SQ SCH ×3 (08:02→21:14)
[2016-10-23] MEDS: PANTOPRAZOLE 40MG INJ (PROTONIX) (C9113) IV SCH (08:03)
[2016-10-23] MEDS: guaiFENesin ER 600 MG TAB PO SCH ×2 (08:03→21:14)
[2016-10-23] MEDS: ASPIRIN 81 MG ENTERIC TAB PO SCH (08:03)
[2016-10-23] MEDS: SPIRONOLACTONE 25 MG TAB PO SCH (08:03)
[2016-10-23] MEDS: VITAMIN D 1,000 INTERNATIONAL UNITS TABLET PO SCH (08:03)
[2016-10-23] MEDS: ADVAIR HFA 230/21 INHALER INH SCH ×2 (08:13→19:37)
--- NOTE | 2016-10-23 08:43 | REP ---
AP PORTABLE CHEST: 10/23/2016 COMPARISON: 10/22/2016, 10/21/2016. CLINICAL HISTORY: Respirator failure. Artifact from the breathing mask and oxygen tubing noted over the upper chest. There is advanced COPD with bullous emphysematous changes, pulmonary hypertension, , mild fibrosis in the bases. Heavier right than left with asymmetric opacity in the right as before. All of this unchanged from previous. IMPRESSION: 1. Advanced COPD as described with asymmetric opacities right compared to left base. All findings unchanged. Signed by Sergio Ring MD 10/23/2016 02:52 P
[2016-10-23] MEDS: DOCUSATE SODIUM 100 MG CAP PO SCH (15:57)
[2016-10-23] MEDS: MIRALAX *UNIT DOSE* 17GM PACKET PO PRN (15:57)
[2016-10-24] VITALS (12 sets, daily range): BP systolic 131–170; BP diastolic 60–97; O2SAT 92
--- NOTE | 2016-10-24 00:05 | IPNPDOC ---
Subjective Date Seen The patient was seen on 10/23/16. Subjective Chief Complaint/HPI The patient is a 75-year-old female admitted with a reason for visit of Respiratory Failure Acute And Chronic. Events since last encounter She remains on BiPap, with brief breaks for meals. Reportedly she desaturates quickly at those times. She has experienced some constipation. Family is at the bedside. Constitutional: Denies: Chills, Fever Pulmonary: Reports: Cough, Dyspnea Cardiovascular: Denies: Chest Pain Gastrointestinal: Reports: Constipation, Denies: Abdominal Pain, Diarrhea, Nausea, Vomiting Psych: Reports: Mood Normal Objective Physical Examination General Exam: Positive: Alert, Cooperative, No Acute Distress, Other (on BiPAP) Eye Exam: Positive: Conjunctiva & lids normal ENT Exam: Positive: Mucous membr. moist/pink Neck Exam: Positive: Supple, Negative: JVD, thyromegaly Chest Exam: Positive: Diminished, Normal air movement (decreased air movement throughout), Wheezing (quiet bilateral wheezing), Negative: Clear to auscultation Heart Exam: Positive: Murmurs (one out of 6 systolic ejection murmur), Normal S1, Normal S2, Rate Normal Abdomen Exam: Positive: Normal bowel sounds, Soft, Negative: Hepatospenomegaly, Tenderness Extremity Exam: Positive: Normal pulses, Negative: Clubbing, Cyanosis, Edema Skin Exam: Positive: Nl turgor and temperature Psych Exam: Positive: Mental status NL, Mood NL, Oriented x 3 Assessment /Plan Problems (1) Acute on chronic respiratory failure with hypercapnia Status: Acute Problem Specific Plan: Consult Specialist Problem Text: Patient is here with acute on chronic hypercapnic respiratory failure secondary to RSV, and possible right lower lobe pneumonia. She has been requiring BiPAP, and is currently being co-managed by critical care. Her respiratory status is improved somewhat today, and she has been able to come off of BiPAP in order to eat. However, her ABG Continues to show significant hypercapnia. Last fever on the a.m. of 10/21/2016. White count down trending rapidly. 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 Patient is on 6 L home oxygen. Patient is on Incruse ellipta at home. - Changed to Advair HFA inpatient -Continue systemic steroids 10/23 -- Patient remains with O2 demands greater than home, and BiPap use throughout the day. Attempts to wean are thus far unsuccessful. (3) RSV (respiratory syncytial virus infection) Status: Acute Problem Text: See above (4) HTN (hypertension) Status: Chronic Problem Text: Blood pressure currently controlled. -Continue home Lasix 40 mg daily -Continue home spironolactone 25 g daily (5) Hypothyroidism (acquired) Status: Acute Problem Text: Continue home levothyroxine 75 mcg daily Plan/VTE VTE Prophylaxis Ordered?: Yes (heparin) VS, I&O, 24H, [facility] Vital Signs/I&O Vital Signs Date Time Temp Pulse Resp B/P Pulse Ox O2 Delivery O2 Flow Rate FiO2 10/23/16 22:00 82 144/65 93 NIPPV (BIPAP/CPAP) 10.0 10/23/16 20:00 100.2 20 10/23/16 10:00 50 I&O- Last 24 Hours up to 6 AM 10/23/16 05:59 Intake Total 1680 ml Output Total 1325 ml Balance 355 ml Laboratory Data 24H LABS Laboratory Tests 2 10/23/16 05:15: Blood Urea Nitrogen 31H, Creatinine 0.58, Sodium Level 138, Potassium Level 4.4 , Chloride Level 83L, Carbon Dioxide Level 58H, Calcium Level 8.9, Phosphorus Level 2.8, Aspartate Amino Transf (AST/SGOT) 18, Alanine Aminotransferase (ALT/ SGPT) 31, Lactate Dehydrogenase 216, Total Creatine Kinase 55, Alkaline Phosphatase 65, Total Bilirubin 0.4, Triglycerides Level 158H, Cholesterol Level 199, Total Protein 5.8L, Albumin 2.5L, Albumin/Globulin Ratio 0.76L, Anion Gap , White Blood Count 8.7, Red Blood Count 5.03, Hemoglobin 15.0, Hematocrit 50.2H, Mean Corpuscular Volume 99.8H, Mean Corpuscular Hemoglobin 29.9, Mean Corpuscular Hemoglobin Concent 29.9L, Red Cell Distribution Width 12.6, Platelet Count 140L, Neutrophils (%) (Auto) 91.8H, Lymphocytes (%) (Auto) 4.3L, Monocytes (%) (Auto) 2.2, Eosinophils (%) (Auto) 0.6, Basophils (%) (Auto ) 0.4, Neutrophils # (Auto) 8.0H, Lymphocytes # (Auto) 0.4L, Monocytes # (Auto) 0.2, Eosinophils # (Auto) 0.0, Basophils # (Auto) 0.0, Glomerular Filtration Rate > 60.0, Large Unclassified Cells # 0.1, Large Unclassified Cells % 0.8 CBC/BMP Laboratory Tests 10/23/16 05:15 Calcium Level 8.9, Phosphorus Level 2.8, Aspartate Amino Transf (AST/SGOT) 18, Alanine Aminotransferase (ALT/SGPT) 31, Lactate Dehydrogenase 216, Total Creatine Kinase 55, Alkaline Phosphatase 65, Total Bilirubin 0.4, Triglycerides Level 158 H, Cholesterol Level 199, Total Protein 5.8 L, Albumin 2.5 L, Red Blood Count 5.03, Mean Corpuscular Volume 99.8 H, Mean Corpuscular Hemoglobin 29.9, Mean Corpuscular Hemoglobin Concent 29.9 L, Red Cell Distribution Width 12.6, Neutrophils (%) (Auto) 91.8 H, Lymphocytes (%) (Auto) 4.3 L, Monocytes (% ) (Auto) 2.2, Eosinophils (%) (Auto) 0.6, Basophils (%) (Auto) 0.4, Neutrophils # (Auto) 8.0 H, Lymphocytes # (Auto) 0.4 L, Monocytes # (Auto) 0.2, Eosinophils # (Auto) 0.0, Basophils # (Auto) 0.0 Microbiology Microbiology 10/20/16 Blood Culture - Preliminary, Resulted No Growth after 72 hours. All specime... 10/20/16 Blood Culture - Preliminary, Resulted No Growth after 72 hours. All specime... 10/20/16 Influenza Virus Type A Antigen - Final, Complete 10/20/16 Influenza Virus Type B Antigen - Final, Complete 10/20/16 Respiratory Virus Panel (PCR) ([facility]) - Final, Complete Respiratory Syncytial Virus 10/20/16 Urine Culture - Final, Complete GLYNN BOWER DO Oct 24, 2016 00:05
[2016-10-24] MEDS: IPRATROPIUM 0.5MG/ALBUTEROL 2.5MG INH SOL UD 3ML (DUONEB)(J7620) NEB SCH ×4 (01:44→19:52)
[2016-10-24 05:33] LABS: ALBUMIN 2.6 GM/DL (3.2-5.2); ALBUMIN/GLOBULIN RATIO 0.74 (1.00-1.93); ALKALINE PHOSPHATASE 70 U/L (45-117); ALT/SGPT 40 U/L (12-78); AST/SGOT 23 U/L (15-37); BILIRUBIN,TOTAL 0.6 MG/DL (0.2-1.0); BLOOD UREA NITROGEN 31 MG/DL (7-18); CALCIUM LEVEL 8.7 MG/DL (8.8-10.2); CHLORIDE LEVEL 81 MEQ/L (98-107); CHOLESTEROL LEVEL 222 MG/DL (< 200); CREATININE FOR GFR 0.58 MG/DL (0.55-1.02); GLOMERULAR FILTRATION RATE > 60.0 (>39); GLUCOSE, FASTING 222 MG/DL (83-110); PHOSPHORUS LEVEL 2.6 MG/DL (2.5-4.9); POTASSIUM SERUM 4.4 MEQ/L (3.5-5.1); SODIUM LEVEL 138 MEQ/L (136-145); TOTAL PROTEIN 6.1 GM/DL (6.4-8.2); TRIGLYCERIDES LEVEL 201 MG/DL (<150)
[2016-10-24 05:43] LABS: CARBON DIOXIDE LEVEL 64 MEQ/L (21-32)
[2016-10-24 05:45] LABS: ADD MORPHOLOGY? YES; BASO % 0.7 % (0.0-1.0); EOS % 0.7 % (0.0-3.0); LARGE UNSTAINED CELL # 0.2 K/mm3 (0.0-0.4); LARGE UNSTAINED CELL % 2.4 % (0.0-4.0); LYMPH # 0.7 K/mm3 (1.5-4.5); LYMPH % 6.9 % (24.0-44.0); MEAN CORPUSCULAR HEMOGLOBIN 29.6 pg (27.0-33.0); MONO # 0.3 K/mm3 (0.0-0.8); MONO % 4.5 % (0.0-5.0); NEUTROPHILS # 6.4 K/mm3 (1.8-7.7); NEUTROPHILS % 84.9 % (36.0-66.0); PLATELET COUNT, AUTOMATED 141 k/mm3 (150-450); RED CELL DISTRIBUTION WIDTH 12.5 % (11.5-14.5); WHITE BLOOD COUNT 7.5 K/mm3 (4.0-10.0)
[2016-10-24] MEDS: LEVOTHYROXINE 0.075 MG TAB (75 MCG) PO SCH (06:10)
[2016-10-24] MEDS: methylPREDNISolone INJ 125 MG/2 ML VIAL (J2930) IV SCH (06:10)
[2016-10-24] MEDS: LevoFLOXacin 750 MG TABLET PO SCH (06:10)
[2016-10-24] MEDS: SLF 3 ML SYR IV SCH ×3 (06:10→21:48)
[2016-10-24 06:31] LABS: HYPOCHROMASIA 1+
[2016-10-24] MEDS: ADVAIR HFA 230/21 INHALER INH SCH ×2 (08:07→19:51)
--- NOTE | 2016-10-24 08:41 | REP ---
Portable chest: Single view. History: Respiratory failure. Comparison study: October 23, 2016. Findings: The lungs overall are somewhat hyperinflated consistent with COPD. Interstitial markings are somewhat prominent in the bases bilaterally consistent with fibrosis. No acute infiltrate is seen. Heart is not enlarged. EKG monitoring electrodes and oxygen delivery tubing are seen overlying the chest. Impression: Evidence of COPD. Bibasilar interstitial opacities persist unchanged. Signed by Emanuel White MD 10/24/2016 11:21 A
[2016-10-24] MEDS ORDERED: SYMBICORT 160/4.5MCG INHALER 6GM INH SCH (09:00)
[2016-10-24] MEDS: NYSTATIN 500,000 U/5 ML SUSP UDC SS SCH ×4 (09:41→21:47)
[2016-10-24] MEDS: PANTOPRAZOLE 40MG INJ (PROTONIX) (C9113) IV SCH (09:41)
[2016-10-24] MEDS: HEPARIN SOD (PORCINE) 5000 UNITS/ML VIAL SQ SCH ×2 (09:42→21:47)
[2016-10-24] MEDS: SPIRONOLACTONE 25 MG TAB PO SCH (09:42)
[2016-10-24] MEDS: guaiFENesin ER 600 MG TAB PO SCH ×2 (09:42→21:47)
[2016-10-24] MEDS: VITAMIN D 1,000 INTERNATIONAL UNITS TABLET PO SCH (09:43)
[2016-10-24] MEDS: MULTIVITAMINS/MINERALS THERAP 1 TAB PO SCH (09:43)
[2016-10-24] MEDS: ASPIRIN 81 MG ENTERIC TAB PO SCH (09:43)
[2016-10-24] MEDS: DOCUSATE SODIUM 100 MG CAP PO SCH (09:43)
[2016-10-24] MEDS: FUROSEMIDE 40 MG TAB PO SCH (09:43)
[2016-10-24] MEDS ORDERED: BISACODYL 10 MG SUPP PR PRN (11:15)
--- NOTE | 2016-10-24 11:15 | IPNPDOC ---
Subjective Date Seen The patient was seen on 10/24/16. Subjective Chief Complaint/HPI The patient is a 75-year-old female admitted with a reason for visit of Respiratory Failure Acute And Chronic. Events since last encounter c/o constipation. No results with Colace and Miralax Constitutional: Reports: Fatigue, Lethargy, Denies: Chills, Fever, Night Sweats Pulmonary: Reports: Cough, Dyspnea Cardiovascular: Denies: Chest Pain, Palpitations Gastrointestinal: Reports: Constipation, Nausea Objective Physical Examination General Exam: Positive: Alert, Cooperative, No Acute Distress, Other (on BiPAP) Eye Exam: Positive: Conjunctiva & lids normal ENT Exam: Positive: Mucous membr. moist/pink Neck Exam: Positive: Supple, Negative: JVD, thyromegaly Chest Exam: Positive: Diminished, Normal air movement (decreased air movement throughout), Wheezing (quiet bilateral wheezing), Negative: Clear to auscultation Heart Exam: Positive: Murmurs (one out of 6 systolic ejection murmur), Normal S1, Normal S2, Rate Normal Abdomen Exam: Positive: Normal bowel sounds, Soft, Negative: Hepatospenomegaly, Tenderness Extremity Exam: Positive: Normal pulses, Negative: Clubbing, Cyanosis, Edema Skin Exam: Positive: Nl turgor and temperature Psych Exam: Positive: Mental status NL, Mood NL, Oriented x 3 Assessment /Plan Problems (1) Acute on chronic respiratory failure with hypercapnia Status: Acute Problem Specific Plan: Consult Specialist Problem Text: Patient is here with acute on chronic hypercapnic respiratory failure secondary to RSV, and possible right lower lobe pneumonia. She has been requiring BiPAP, and is currently being co-managed by critical care. Her respiratory status is improved somewhat today, and she has been able to come off of BiPAP in order to eat. However, her ABG Continues to show significant hypercapnia. Last fever on the a.m. of 10/21/2016. White count down trending rapidly. 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 Patient is on 6 L home oxygen. Patient is on Incruse ellipta at home. - Changed to Advair HFA inpatient -Continue systemic steroids 10/23 -- Patient remains with O2 demands greater than home, and BiPap use throughout the day. Attempts to wean are thus far unsuccessful. (3) RSV (respiratory syncytial virus infection) Status: Acute Problem Text: See above (4) HTN (hypertension) Status: Chronic Problem Text: Blood pressure currently controlled. -Continue home Lasix 40 mg daily -Continue home spironolactone 25 g daily (5) Hypothyroidism (acquired) Status: Acute Problem Text: Continue home levothyroxine 75 mcg daily (6) Constipation Status: Acute Problem Text: Dulcolax suppository ordered. Continue Colace and Miralax prn. Plan/VTE VTE Prophylaxis Ordered?: Yes (heparin) Plan Attending note: I saw and evaluated the patient, and agree to plan of care as discussed and documented above. Patient is improving, and now off of BiPAP. We'll continue by mouth Levaquin. Hopefully, patient will be ready to transition to the PCU tomorrow. Discussed with Dr. Purcell, who also felt the patient needed to remain in the ICU for another day. Valentino Spring MD VS, I&O, [facility] Vital Signs/I&O Vital Signs Date Time Temp Pulse Resp B/P Pulse Ox O2 Delivery O2 Flow Rate FiO2 10/24/16 06:06 81 141/97 88 NIPPV (BIPAP/CPAP) 8.0 10/24/16 04:02 98.9 20 10/23/16 10:00 50 I&O- Last 24 Hours up to 6 AM 10/24/16 06:00 Intake Total 960 ml Output Total 1100 ml Balance -140 ml Laboratory Data 24H LABS Laboratory Tests 2 10/24/16 04:50: Blood Urea Nitrogen 31H, Creatinine 0.58, Sodium Level 138, Potassium Level 4.4 , Chloride Level 81L, Carbon Dioxide Level 64H, Calcium Level 8.7L, Phosphorus Level 2.6, Aspartate Amino Transf (AST/SGOT) 23, Alanine Aminotransferase (ALT/ SGPT) 40, Lactate Dehydrogenase 251H, Total Creatine Kinase 102#, Alkaline Phosphatase 70, Total Bilirubin 0.6, Triglycerides Level 201H, Cholesterol Level 222H, Total Protein 6.1L, Albumin 2.6L, Albumin/Globulin Ratio 0.74L, Anion Gap , White Blood Count 7.5, Red Blood Count 5.26, Hemoglobin 15.6, Hematocrit 53.6H, Mean Corpuscular Volume 102.0H, Mean Corpuscular Hemoglobin 29.6, Mean Corpuscular Hemoglobin Concent 29.0L, Red Cell Distribution Width 12.5, Platelet Count 141L, Neutrophils (%) (Auto) 84.9H, Lymphocytes (%) (Auto) 6.9L, Monocytes (%) (Auto) 4.5, Eosinophils (%) (Auto) 0.7, Basophils (%) (Auto ) 0.7, Neutrophils # (Auto) 6.4, Lymphocytes # (Auto) 0.7L, Monocytes # (Auto) 0.3, Eosinophils # (Auto) 0.0, Basophils # (Auto) 0.0, Glomerular Filtration Rate > 60.0, Hypochromasia 1+, Large Unclassified Cells # 0.2, Large Unclassified Cells % 2.4, Macrocytosis 1+, Platelet Estimate NORMAL CBC/BMP Laboratory Tests 10/24/16 04:50 Calcium Level 8.7 L, Phosphorus Level 2.6, Aspartate Amino Transf (AST/SGOT) 23 , Alanine Aminotransferase (ALT/SGPT) 40, Lactate Dehydrogenase 251 H, Total Creatine Kinase 102 #, Alkaline Phosphatase 70, Total Bilirubin 0.6, Triglycerides Level 201 H, Cholesterol Level 222 H, Total Protein 6.1 L, Albumin 2.6 L, Red Blood Count 5.26, Mean Corpuscular Volume 102.0 H, Mean Corpuscular Hemoglobin 29.6, Mean Corpuscular Hemoglobin Concent 29.0 L, Red Cell Distribution Width 12.5, Neutrophils (%) (Auto) 84.9 H, Lymphocytes (%) ( Auto) 6.9 L, Monocytes (%) (Auto) 4.5, Eosinophils (%) (Auto) 0.7, Basophils (% ) (Auto) 0.7, Neutrophils # (Auto) 6.4, Lymphocytes # (Auto) 0.7 L, Monocytes # (Auto) 0.3, Eosinophils # (Auto) 0.0, Basophils # (Auto) 0.0 Microbiology Microbiology 10/20/16 Blood Culture - Preliminary, Resulted No Growth after 72 hours. All specime... 10/20/16 Blood Culture - Preliminary, Resulted No Growth after 72 hours. All specime... 10/20/16 Influenza Virus Type A Antigen - Final, Complete 10/20/16 Influenza Virus Type B Antigen - Final, Complete 10/20/16 Respiratory Virus Panel (PCR) ([facility]) - Final, Complete Respiratory Syncytial Virus 10/20/16 Urine Culture - Final, Complete Osiris TongP Oct 24, 2016 11:15 VALENTINO SPRING MD Oct 24, 2016 15:48
[2016-10-24] MEDS: MIRALAX *UNIT DOSE* 17GM PACKET PO PRN (12:15)
[2016-10-24] MEDS ORDERED: LORazepam 0.5 MG TAB PO PRN (12:45)
[2016-10-24] MEDS: TIOTROPIUM INHALER/CAPSULE (SPIRIVA) INH SCH (12:59)
[2016-10-24] MEDS ORDERED: FLUCONAZOLE 50MG TABLET PO ONE (18:45)
[2016-10-24] MEDS: methylPREDNISolone INJ 40 MG/1 ML VIAL (J2920) IV SCH (18:48)
[2016-10-25] VITALS (10 sets, daily range): BP systolic 134–161; BP diastolic 66–92; O2SAT 90
[2016-10-25] LABS: ABG BASE EXCESS 34.5 (-2.0-2.0); ABG HCO3 72.2 MEQ/L (22.0-26.0); ABG PARTIAL PRESSURE O2 65.8 mmHg (75.0-100.0); ABG STANDARD HCO3 62.9 MEQ/L (22.0-26.0); ABG TOTAL CO2 76.7 MEQ/L (23.0-31.0); ABG pH (ARTERIAL) 7.316 UNITS (7.350-7.450)
[2016-10-25 00:03] LABS: ABG PARTIAL PRESSURE CO2 144.7 mmHg (35.0-45.0)
[2016-10-25] MEDS: IPRATROPIUM 0.5MG/ALBUTEROL 2.5MG INH SOL UD 3ML (DUONEB)(J7620) NEB SCH ×4 (01:22→21:41)
[2016-10-25 05:14] LABS: DIFF SLIDE NUMBER 10; MEAN CORPUSCULAR HEMOGLOBIN 29.6 pg (27.0-33.0); MEAN CORPUSCULAR HGB CONC 28.9 g/dl (32.0-36.5); MEAN CORPUSCULAR VOLUME 102.2 fl (80.0-96.0); PLATELET COUNT, AUTOMATED 104 k/mm3 (150-450); RED CELL DISTRIBUTION WIDTH 12.4 % (11.5-14.5); WHITE BLOOD COUNT 9.6 K/mm3 (4.0-10.0)
[2016-10-25 05:48] LABS: ALBUMIN 2.6 GM/DL (3.2-5.2); ALBUMIN/GLOBULIN RATIO 0.76 (1.00-1.93); ALKALINE PHOSPHATASE 67 U/L (45-117); ALT/SGPT 72 U/L (12-78); AST/SGOT 31 U/L (15-37); BILIRUBIN,TOTAL 0.7 MG/DL (0.2-1.0); BLOOD UREA NITROGEN 38 MG/DL (7-18); CHLORIDE LEVEL 78 MEQ/L (98-107); CHOLESTEROL LEVEL 224 MG/DL (< 200); CREATININE FOR GFR 0.68 MG/DL (0.55-1.02); GLOMERULAR FILTRATION RATE > 60.0 (>39); GLUCOSE, FASTING 249 MG/DL (83-110); PHOSPHORUS LEVEL 3.1 MG/DL (2.5-4.9); POTASSIUM SERUM 4.6 MEQ/L (3.5-5.1); SODIUM LEVEL 136 MEQ/L (136-145); TRIGLYCERIDES LEVEL 251 MG/DL (<150)
[2016-10-25] MEDS: LEVOTHYROXINE 0.075 MG TAB (75 MCG) PO SCH (05:53)
[2016-10-25] MEDS: LevoFLOXacin 750 MG TABLET PO SCH (05:53)
[2016-10-25 06:05] LABS: ANION GAP 0 MEQ/L (8-16); HYPOCHROMASIA 2+
[2016-10-25 06:06] LABS: PLATELET CLUMPS SMALL AMT
[2016-10-25 06:08] LABS: CARBON DIOXIDE LEVEL 58 MEQ/L (21-32)
[2016-10-25] MEDS: methylPREDNISolone INJ 40 MG/1 ML VIAL (J2920) IV SCH ×2 (06:16→18:07)
[2016-10-25] MEDS: SLF 3 ML SYR IV SCH ×3 (06:16→20:51)
[2016-10-25] MEDS: TIOTROPIUM INHALER/CAPSULE (SPIRIVA) INH SCH (08:00)
--- NOTE | 2016-10-25 08:48 | REP ---
REASON: Respiratory failure. COMPARISON: Multiple, the latest 10/24/2016 The bibasilar opacities appear slightly improved. The technique utilized in obtaining the radiograph has magnified the cardiac silhouette and accentuated the interstitial markings. The cardiomediastinal silhouette is unchanged. The heart is not enlarged. No new or abnormal opacities. No change in the lung borjas. IMPRESSION: There appears to be improvement as described above. Signed by José Kong DO 10/25/2016 08:49 A
[2016-10-25] MEDS: ADVAIR HFA 230/21 INHALER INH SCH ×2 (09:00→21:41)
[2016-10-25] MEDS: NYSTATIN 500,000 U/5 ML SUSP UDC SS SCH ×4 (09:32→20:50)
[2016-10-25] MEDS: VITAMIN D 1,000 INTERNATIONAL UNITS TABLET PO SCH (09:33)
[2016-10-25] MEDS: SPIRONOLACTONE 25 MG TAB PO SCH (09:33)
[2016-10-25] MEDS: guaiFENesin ER 600 MG TAB PO SCH ×2 (09:33→20:50)
[2016-10-25] MEDS: PANTOPRAZOLE 40MG INJ (PROTONIX) (C9113) IV SCH (09:33)
[2016-10-25] MEDS: MULTIVITAMINS/MINERALS THERAP 1 TAB PO SCH (09:33)
[2016-10-25] MEDS: HEPARIN SOD (PORCINE) 5000 UNITS/ML VIAL SQ SCH ×2 (09:33→20:50)
[2016-10-25] MEDS: ASPIRIN 81 MG ENTERIC TAB PO SCH (09:34)
[2016-10-25] MEDS: FUROSEMIDE 40 MG TAB PO SCH (09:34)
[2016-10-25] MEDS: DOCUSATE SODIUM 100 MG CAP PO SCH (09:34)
[2016-10-25 10:56] LABS: ABG BASE EXCESS 38.7 (-2.0-2.0); ABG HCO3 77.8 MEQ/L (22.0-26.0); ABG PARTIAL PRESSURE O2 70.5 mmHg (75.0-100.0); ABG STANDARD HCO3 69.2 MEQ/L (22.0-26.0); ABG TOTAL CO2 82.4 MEQ/L (23.0-31.0); ABG pH (ARTERIAL) 7.335 UNITS (7.350-7.450)
[2016-10-25 10:58] LABS: ABG PARTIAL PRESSURE CO2 149.2 mmHg (35.0-45.0)
[2016-10-25] MEDS: NS 0.45% 1,000 ML IV SCH (13:48)
--- NOTE | 2016-10-25 18:13 | IPN ---
DATE: 10/25/2016 SUBJECTIVE: The patient is seen today in the intensive care unit (ICU)/ Overnight she apparently had some additional issues with her respirations, probably due to sedation from having received a dose of Ativan, her pCO2 went up and she was placed on facility's BiPAP rather than her own home BiPAP machine. She seems a bit better this morning. We observed her this morning to be awake in her ICU bed, taking medications, not talking a lot but does say a few words and nod. She is moving all her extremities. She is not doing any coughing. Her current medications include: - 40 mg of Solu-Medrol every 12 hours - one inhalation of Spiriva daily - levofloxacin 750 mg daily - Nystatin swish and swallow four times a day - fluticasone salmeterol inhaled twice a day - pantoprazole 40 mg daily - guaifenesin 1200 mg twice a day - she is getting subcutaneous heparin - DuoNeb every six hours and every two hours as needed - aspirin - furosemide 40 mg daily - multivitamins - spironolactone 25 mg daily - vitamin D 2000 units daily - levothyroxine 75 mcg daily OBJECTIVE: VITAL SIGNS: On examination, temperature is 98.1, blood pressure 138/92, pulse 93 and regular, respirations 26, they seem unlabored, O2 saturations 89%-90%. She is on the BiPAP at 40% O2. HEENT: There is no facial weakness. Mucous membranes are moist. NECK: There are no neck masses, tenderness or adenopathy. No carotid bruits. RESPIRATORY: Her lungs show diminished breath sounds but for the most part are clear. CARDIAC: Heart is distant. I am not hearing any murmur, click or gallop. ABDOMEN: Soft, nontender without any masses or organomegaly. Bowel sounds are active. EXTREMITIES: There is no edema. She does do a little bit of twitching with her arms. IMAGING: Chest x-ray today does show a little bit of improvement in basilar infiltrates; otherwise about the same. ASSESSMENT: 1. Chronic obstructive pulmonary disease (COPD). 2. Acute on chronic respiratory failure. 3. Respiratory syncytial virus (RSV) infection. 4. Hypertension. 5. Hypothyroidism. 6. Constipation. 7. Probable thrush. PLAN: The patient will continue on her current medications and BiPAP. NO changes are made today. Dr. Purcell from pulmonology will be seeing her and is very much on top of the case. We discussed her at length this morning. Patient on a good day has a very impaired respiratory system, and any insult such as the RSV infection is quite disconcerting for her. LABORATORY DATA: I should report her labs from today. Last night at around midnight, her pCO2 was 144, pO2 was 65. Her pH was 7.31. Bicarb interestingly was 62.9. Chemistries today show BUN of 38, creatinine 0.68, glucose 249, and chloride 78. CO2 58.
[2016-10-25] MEDS: ACETAMINOPHEN TAB 650MG DOSE (2X325MG) PO PRN (20:50)
--- NOTE | 2016-10-25 21:59 | CCN ---
DATE: 10/25/2016 Ms. Baltazar had worsened shortness of breath and decreased mental status starting last evening. She had not slept for a couple of days and had been given a dose of Ativan. It was thought that this was likely a large portion of the change; however, an arterial blood gas at that time was not significantly decompensated despite her marked abnormal baseline numbers. Nonetheless, it was anticipated that her home bilevel may not be sufficient. She was changed to the Respironics to be used as bilevel, given the higher flow, with hopes that this would be discontinued in the morning. She did well overnight, but this morning she was complaining of shortness of breath. She is alert and awake. She also had worsened hypoxemia. When she was placed on nasal cannula very briefly, it was taking a significantly higher flow to maintain her saturation at 85-90%. An arterial blood gas was obtained, which was compensated, but now the compensatory pCO2 was close to 150. It is thought that some this is likely artifactual, but a lot of it may be secondary to change in the "set point." Her bicarbonate since admission is from 46 to now 58. The etiology for this change is probably predominantly secondary to compensation of pulmonary disease. She is on diuretics, so these have not been changed and are her home medications. Because of her air hunger, the bilevel device is truthfully now being used as a non-invasive mechanical ventilatory in a compensated person. OBJECTIVE: PHYSICAL EXAMINATION: GENERAL: Ms. Baltazar is lying in bed appearing uncomfortable and appearing short of breath despite having a full face mask on. She is able to speak short-word sentences. VITAL SIGNS: Temperature 99.7, which is her maximal temperature, respiratory rate 22, pulse 89, SpO2 of 89% on noninvasive mechanical ventilation with an FiO2 of 0.5. HEENT: Anicteric. She does tend to roll her eyes back and close her eyes (but opens the to voice). Nares and oropharynx not examined secondary to full-face mask NECK: Supple. Unable to appreciate jugular venous distention (JVD). Without thyromegaly or masses. Trachea is midline. LYMPHATICS: Without cervical or supraclavicular lymphadenopathy. LUNGS: Symmetrical excursion. Markedly diminished air entry. No wheeze, rhonchi, or crackle, end-tidal excursion. Prolonged expiratory phase. No accessory muscle usage or retractions. CARDIOVASCULAR: Distant, regular rate and rhythm. Normal S1, S2. ABDOMEN: Positive bowel sounds, soft, nondistended, nontender. EXTREMITIES: Warm and well perfused. Sequential compression devices (SCDs) in place. Trace pedal edema bilaterally. Palpable pedal pulses. LABORATORY DATA: Sodium 136, potassium 4.6, chloride 78, bicarbonate 58, anion gap 0, BUN 38, creatinine 0.7, glucose 249, calcium 9.0, phosphorus 3.1. Total bilirubin 0.7, AST 31, ALT 72, alkaline phosphatase 67, LDH 250. CK 56, total protein 6.0, albumin 2.6. CBC shows a hemoglobin of 15.4 with hematocrit of 53.4, platelet count 104,000, white blood cell count 9600 with a differential of 85% neutrophils, 9% lymphocytes, and 5% monocytes. Arterial blood gas was 7.34/149/71 with a measured saturation of 94%. I reviewed her chest x-ray as well as report from earlier today. That x-ray showed normal-appearing cardiac silhouette and pulmonary vascular shadows. No acute infiltrate. Minimal bibasilar, likely fibroatelectasis, which I thought was unchanged, but radiology felt may have even been improved. Evidence of hyperinflation. IMPRESSION: 1. Shortness of breath. Unfortunately, she has a compensated, significant respiratory acidosis secondary to end-stage chronic obstructive pulmonary disease (COPD). 2. COPD, end stage. FEV1 of 19% when well. 3. Nutrition. Poor by mouth intake over the last 24 hours. 4. Chronic respiratory failure, for which she has been in bilevel therapy for many years. 5. Diabetes mellitus, type 2. RECOMMENDATIONS: 1. I had a prolonged discussion with Ms. Baltazar, her , and three daughters. She understands and indicates that she has end-stage lung disease. I discussed with them that I am not certain she will survive this hospitalization. She tells me that she is "tired." She wants to go home. Her family also indicates understand that she is at a compensated level at this time, and there is likely little we can do to change this. 2. Will institute intravenous (IV) fluids, as I suspect that she will have increasing insensible losses, and she is not taking good by mouth. Also, her BUN and creatinine are slightly elevated. 3. The primary team has discontinued the diuretics. 4. While she has an elevated bicarbonate, I do not feel it is safe or that she would tolerate using acetazolamide to dump some of the bicarbonate, as I am not certain she would be able to compensate for the changes. 5. In regard to her insomnia, I discussed with Ms. Baltazar, her family, as well as the primary team that she cannot have any further sleeping medications (unless she was comfort measures). If an agent is absolutely needed, I would use diphenhydramine. 6. Because of her air hunger, will keep her on noninvasive mechanical ventilation for the immediate future, even though she is compensated at this time. I feel she would rapidly decompensate if she was not on the device. 7. Will also change her corticosteroid to in the morning starting tomorrow. Perhaps using it early in the day will decrease some of her insomnia. 8. Her family is discussing options with her, including possible hospice consultation for her so that she can go home. I am not certain with the amount of intervention she is requiring at this time that that will be possible. PROGNOSIS: Poor. CRITICAL CARE TIME: 55 minutes, including procedure time.
[2016-10-26] VITALS (12 sets, daily range): BP systolic 131–178; BP diastolic 65–96; O2SAT 88
[2016-10-26] MEDS ORDERED: diphenhydrAMINE 25 MG CAP PO PRN
[2016-10-26] MEDS: IPRATROPIUM 0.5MG/ALBUTEROL 2.5MG INH SOL UD 3ML (DUONEB)(J7620) NEB SCH ×4 (01:30→20:00)
[2016-10-26] MEDS: NS 0.45% 1,000 ML IV SCH ×2 (02:38→16:18)
[2016-10-26 04:54] LABS: BASO % 0.3 % (0.0-1.0); EOS % 0.8 % (0.0-3.0); LARGE UNSTAINED CELL # 0.1 K/mm3 (0.0-0.4); LARGE UNSTAINED CELL % 0.8 % (0.0-4.0); LYMPH # 0.6 K/mm3 (1.5-4.5); LYMPH % 8.1 % (24.0-44.0); MEAN CORPUSCULAR HEMOGLOBIN 30.1 pg (27.0-33.0); MEAN CORPUSCULAR VOLUME 100.5 fl (80.0-96.0); MONO # 0.2 K/mm3 (0.0-0.8); MONO % 3.1 % (0.0-5.0); NEUTROPHILS # 5.7 K/mm3 (1.8-7.7); NEUTROPHILS % 86.9 % (36.0-66.0); PLATELET COUNT, AUTOMATED 115 k/mm3 (150-450); RED CELL DISTRIBUTION WIDTH 12.8 % (11.5-14.5); WHITE BLOOD COUNT 6.6 K/mm3 (4.0-10.0)
[2016-10-26] MEDS: LEVOTHYROXINE 0.075 MG TAB (75 MCG) PO SCH (05:44)
[2016-10-26] MEDS: LevoFLOXacin 750 MG TABLET PO SCH (05:44)
[2016-10-26] MEDS: SLF 3 ML SYR IV SCH ×3 (05:44→23:48)
[2016-10-26] MEDS: methylPREDNISolone INJ 40 MG/1 ML VIAL (J2920) IV SCH (06:01)
[2016-10-26] MEDS: HEPARIN SOD (PORCINE) 5000 UNITS/ML VIAL SQ SCH ×2 (08:00→23:48)
[2016-10-26] MEDS: TIOTROPIUM INHALER/CAPSULE (SPIRIVA) INH SCH (08:00)
[2016-10-26] MEDS: NYSTATIN 500,000 U/5 ML SUSP UDC SS SCH ×4 (08:00→23:47)
[2016-10-26] MEDS: PANTOPRAZOLE 40MG INJ (PROTONIX) (C9113) IV SCH (08:00)
[2016-10-26] MEDS: guaiFENesin ER 600 MG TAB PO SCH ×2 (08:00→23:48)
[2016-10-26] MEDS: DOCUSATE SODIUM 100 MG CAP PO SCH (08:01)
[2016-10-26] MEDS: ASPIRIN 81 MG ENTERIC TAB PO SCH (08:01)
[2016-10-26] MEDS: ADVAIR HFA 230/21 INHALER INH SCH ×2 (09:00→19:52)
[2016-10-26 09:54] LABS: ABG BASE EXCESS 23.9 (-2.0-2.0); ABG HCO3 56.4 MEQ/L (22.0-26.0); ABG PARTIAL PRESSURE O2 77.1 mmHg (75.0-100.0); ABG STANDARD HCO3 49.2 MEQ/L (22.0-26.0); ABG TOTAL CO2 59.4 MEQ/L (23.0-31.0); ABG pH (ARTERIAL) 7.377 UNITS (7.350-7.450)
[2016-10-26 09:56] LABS: ABG PARTIAL PRESSURE CO2 98.2 mmHg (35.0-45.0)
[2016-10-26 12:34] LABS: MEAN CORPUSCULAR HGB CONC 29.8 g/dl (32.0-36.5); MEAN CORPUSCULAR VOLUME 100.5 fl (80.0-96.0); RED CELL DISTRIBUTION WIDTH 12.9 % (11.5-14.5); WHITE BLOOD COUNT 6.4 K/mm3 (4.0-10.0)
[2016-10-26 12:49] LABS: ALBUMIN 2.7 GM/DL (3.2-5.2); ALBUMIN/GLOBULIN RATIO 0.93 (1.00-1.93); ALKALINE PHOSPHATASE 68 U/L (45-117); ALT/SGPT 70 U/L (12-78); AST/SGOT 24 U/L (15-37); BLOOD UREA NITROGEN 33 MG/DL (7-18); CALCIUM LEVEL 8.8 MG/DL (8.8-10.2); CREATININE FOR GFR 0.67 MG/DL (0.55-1.02); GLOMERULAR FILTRATION RATE > 60.0 (>39); GLUCOSE, FASTING 252 MG/DL (83-110); MAGNESIUM LEVEL 2.5 MG/DL (1.8-2.4); TOTAL PROTEIN 5.6 GM/DL (6.4-8.2)
[2016-10-26 13:02] LABS: CHLORIDE LEVEL 78 MEQ/L (98-107); SODIUM LEVEL 131 MEQ/L (136-145)
[2016-10-26 13:15] LABS: CARBON DIOXIDE LEVEL 60 MEQ/L (21-32); POTASSIUM SERUM 5.2 MEQ/L (3.5-5.1)
[2016-10-26] MEDS ORDERED: predniSONE 20 MG TAB PO ONE (14:00)
[2016-10-27] VITALS (9 sets, daily range): BP systolic 125–167; BP diastolic 63–80
[2016-10-27] MEDS: IPRATROPIUM 0.5MG/ALBUTEROL 2.5MG INH SOL UD 3ML (DUONEB)(J7620) NEB SCH ×3 (01:34→13:24)
[2016-10-27] MEDS: NS 0.45% 1,000 ML IV SCH (04:53)
[2016-10-27 04:56] LABS: BASO % 0.3 % (0.0-1.0); EOS % 0.2 % (0.0-3.0); LARGE UNSTAINED CELL # 0.1 K/mm3 (0.0-0.4); LARGE UNSTAINED CELL % 1.3 % (0.0-4.0); LYMPH # 0.7 K/mm3 (1.5-4.5); LYMPH % 9.2 % (24.0-44.0); MEAN CORPUSCULAR HEMOGLOBIN 31.3 pg (27.0-33.0); MEAN CORPUSCULAR HGB CONC 31.4 g/dl (32.0-36.5); MEAN CORPUSCULAR VOLUME 99.6 fl (80.0-96.0); MONO # 0.3 K/mm3 (0.0-0.8); MONO % 4.2 % (0.0-5.0); NEUTROPHILS # 6.2 K/mm3 (1.8-7.7); NEUTROPHILS % 84.9 % (36.0-66.0); PLATELET COUNT, AUTOMATED 106 k/mm3 (150-450); RED CELL DISTRIBUTION WIDTH 12.9 % (11.5-14.5); WHITE BLOOD COUNT 7.2 K/mm3 (4.0-10.0)
[2016-10-27 05:20] LABS: ALBUMIN 2.7 GM/DL (3.2-5.2); ALBUMIN/GLOBULIN RATIO 0.87 (1.00-1.93); ALKALINE PHOSPHATASE 66 U/L (45-117); ALT/SGPT 65 U/L (12-78); AST/SGOT 24 U/L (15-37); BILIRUBIN,TOTAL 1.2 MG/DL (0.2-1.0); BLOOD UREA NITROGEN 23 MG/DL (7-18); CHLORIDE LEVEL 80 MEQ/L (98-107); CREATININE FOR GFR 0.54 MG/DL (0.55-1.02); GLOMERULAR FILTRATION RATE > 60.0 (>39); GLUCOSE, FASTING 254 MG/DL (83-110); POTASSIUM SERUM 4.8 MEQ/L (3.5-5.1); SODIUM LEVEL 135 MEQ/L (136-145); TOTAL PROTEIN 5.8 GM/DL (6.4-8.2)
[2016-10-27 05:42] LABS: ANION GAP 0 MEQ/L (8-16)
[2016-10-27] MEDS: LevoFLOXacin 750 MG TABLET PO SCH (05:56)
[2016-10-27] MEDS: LEVOTHYROXINE 0.075 MG TAB (75 MCG) PO SCH (05:56)
[2016-10-27] MEDS: SLF 3 ML SYR IV SCH ×3 (05:56→20:53)
[2016-10-27 06:07] LABS: CARBON DIOXIDE LEVEL 55 MEQ/L (21-32)
[2016-10-27] MEDS: TIOTROPIUM INHALER/CAPSULE (SPIRIVA) INH SCH (08:01)
[2016-10-27] MEDS: ADVAIR HFA 230/21 INHALER INH SCH ×2 (08:01→20:29)
[2016-10-27] MEDS: guaiFENesin ER 600 MG TAB PO SCH ×2 (08:45→20:45)
[2016-10-27] MEDS: DOCUSATE SODIUM 100 MG CAP PO SCH (08:45)
[2016-10-27] MEDS: HEPARIN SOD (PORCINE) 5000 UNITS/ML VIAL SQ SCH ×2 (08:45→20:45)
[2016-10-27] MEDS: NYSTATIN 500,000 U/5 ML SUSP UDC SS SCH ×4 (08:45→20:45)
[2016-10-27] MEDS: ASPIRIN 81 MG ENTERIC TAB PO SCH (08:45)
[2016-10-27] MEDS: PANTOPRAZOLE 40MG INJ (PROTONIX) (C9113) IV SCH (08:46)
[2016-10-27] MEDS ORDERED: methylPREDNISolone INJ 40 MG/1 ML VIAL (J2920) IV SCH (09:00)
[2016-10-27] MEDS ORDERED: predniSONE 20 MG TAB PO SCH (09:00)
--- NOTE | 2016-10-27 09:47 | IPN ---
DATE: 10/26/2016 Mrs. Baltazar is seen in the intensive care unit (ICU). Her condition yesterday seemed a bit more tenuous than it had been, although she seems to have perked up and her numbers and just how she looks appears better. She is getting bilevel positive airway pressure (BiPAP) and is using the hospital's ventilator machine. She says she feels reasonably comfortable. She denies any pain. With the BiPAP on, she does not seem dyspneic, not really doing much in the way of coughing and not raising any phlegm. She has been off the BiPAP for very minimal amounts of time to take medications and to have some nutrition. CURRENT MEDICATIONS: Regimen includes: Methylprednisolone 40 mg every 12 hours , as-needed diphenhydramine for sleep, Spiriva inhaler, Colace, Levaquin, Advair, pantoprazole, Mucinex, subcutaneous heparin, DuoNebs four times day and as needed, aspirin, levothyroxine. PHYSICAL EXAMINATION: On examination, her temperature is 99.3, blood pressure 177/93, pulse 90 and regular, respirations 20, oxygen is 90% on 40% bilevel positive airway pressure (BiPAP). She is awake and alert. She responds appropriately to questioning, appears quite comfortable with BiPap on. Her eyes are clear. There is no facial weakness. No neck masses, tenderness or adenopathy. Lungs show diminished breath sounds diffusely, but otherwise clear. Heart has a regular rhythm. I am not hearing any murmur, click, or gallop. Abdomen is soft and nontender without any masses or organomegaly. There is no edema. She does have some bruising on the third and fourth toes on the left. Apparently, she had bumped these in the bathroom several days before entering the hospital. LABORATORY DATA: She had a CBC done today. Hemoglobin was 15.2, WBCs 6600. She had arterial blood gas just a little while ago that showed pH of 7.37, pCO2 of 98, pO2 of 77, bicarbonate was 49. She has yet to have a chemistry profile today. ASSESSMENT: 1. Chronic obstructive pulmonary disease exacerbation. 2. Acute on chronic respiratory failure. 3. Respiratory syncytial virus infection. 4. Hypertension. 5. Hypothyroidism. 6. Constipation. 7. Probable thrush. PLAN: The patient is going to continue on her current medications and bilevel positive airway pressure (BiPAP). With her blood pressure being up today, I will ask Dr. Purcell whether she feels that we need to address this with any medication. She is quite comfortable. Hopefully, she can maintain this and be able to have her respiratory treatments tapered. Her family indicated today within earshot of mom that they would really like to go home, have hospice involved, but they want to go home with BiPAP. Apparently, this was the situation before when she was discharged from the hospital and it seemed to work out okay. I do have reservations about whether her own BiPAP device is sufficient to keep her out of acute respiratory failure. Prognosis remains poor but she feels quite a bit more comfortable today and looks a whole lot better. CHELLE
--- NOTE | 2016-10-27 14:13 | IPNPDOC ---
Subjective Date Seen The patient was seen on 10/27/16. Subjective Chief Complaint/HPI The patient is a 75-year-old female admitted with a reason for visit of Respiratory Failure Acute And Chronic. Events since last encounter Patient has no complaints, she states when she tries to eat she gets full easily and has some stomach queasiness. Constitutional: Denies: Chills, Fever Pulmonary: Reports: Cough, Dyspnea Cardiovascular: Denies: Chest Pain, Palpitations Gastrointestinal: Denies: Abdominal Pain, Diarrhea, Nausea, Vomiting Genitourinary: Denies: Dysuria Objective Physical Examination General Exam: Positive: Alert, Cooperative, No Acute Distress, Other (on BiPAP) Eye Exam: Positive: Conjunctiva & lids normal Chest Exam: Positive: Diminished, Negative: Clear to auscultation, Normal air movement (decreased air movement throughout) Heart Exam: Positive: Normal S1, Normal S2, Other (heart sounds distant over Bipap), Rate Normal Abdomen Exam: Positive: Normal bowel sounds, Soft, Negative: Hepatospenomegaly, Tenderness Extremity Exam: Positive: Normal pulses, Negative: Clubbing, Cyanosis, Edema Skin Exam: Positive: Nl turgor and temperature Psych Exam: Positive: Mental status NL, Mood NL, Oriented x 3 Assessment /Plan Problems (1) Acute on chronic respiratory failure with hypercapnia Status: Acute Problem Specific Plan: Consult Specialist Problem Text: Patient presented with acute on chronic hypercapnic respiratory failure secondary to RSV, and possible right lower lobe pneumonia. She has been requiring BiPap at all times in order to feel comfortable with her breathing. ABGs done over the past few day show chronic CO2 retention. Patient has elected to go to her daughter's house with Hospice care and Bipap for comfort. Plans have been made and she has transportation tomorrow at 10:30 am. Will transfer to Med/Surg Floor. - Continue Bipap per Pulm - Completed levaquin x5 days; will d/c now - I steroids discontinued. - Duonebs PRN (2) COPD exacerbation Status: Acute Problem Text: Chronic hypoxic respiratory failure secondary to COPD, with emphysematous changes. Patient is on 6 L home oxygen. Patient is on Incruse ellipta at home. - Changed to Advair HFA inpatient; continue breathing treatments for comfort. (3) RSV (respiratory syncytial virus infection) Status: Acute Problem Text: See above (4) HTN (hypertension) Status: Chronic Problem Text: Blood pressure currently controlled off of home diuretics (lasix , spironolactone). (5) Hypothyroidism (acquired) Status: Acute Problem Text: Continue home levothyroxine 75 mcg daily (6) Constipation Status: Acute Problem Text: Dulcolax suppository ordered. Continue Colace and Miralax prn. Plan/VTE VTE Prophylaxis Ordered?: Yes (heparin) VS, I&O, 24H, Fishbone Vital Signs/I&O Vital Signs Date Time Temp Pulse Resp B/P Pulse Ox O2 Delivery O2 Flow Rate FiO2 10/27/16 12:00 97.3 78 28 129/70 92 NIPPV (BIPAP/CPAP) 6.0 10/26/16 12:00 40 I&O- Last 24 Hours up to 6 AM 10/27/16 06:00 Intake Total 2205 ml Output Total 240 ml Balance 1965 ml Laboratory Data 24H LABS Laboratory Tests 2 10/27/16 04:36: Blood Urea Nitrogen 23H, Creatinine 0.54L, Sodium Level 135L, Potassium Level 4.8, Chloride Level 80L, Carbon Dioxide Level 55H, Calcium Level 9.0, Aspartate Amino Transf (AST/SGOT) 24, Alanine Aminotransferase (ALT/SGPT) 65, Alkaline Phosphatase 66, Total Bilirubin 1.2H, Total Protein 5.8L, Albumin 2.7L, Albumin/ Globulin Ratio 0.87L, Anion Gap 0L, White Blood Count 7.2, Red Blood Count 5.19 , Hemoglobin 16.2H, Hematocrit 51.7H, Mean Corpuscular Volume 99.6H, Mean Corpuscular Hemoglobin 31.3, Mean Corpuscular Hemoglobin Concent 31.4L, Red Cell Distribution Width 12.9, Platelet Count 106L, Neutrophils (%) (Auto) 84.9H , Lymphocytes (%) (Auto) 9.2L, Monocytes (%) (Auto) 4.2, Eosinophils (%) (Auto) 0.2, Basophils (%) (Auto) 0.3, Neutrophils # (Auto) 6.2, Lymphocytes # (Auto) 0.7L, Monocytes # (Auto) 0.3, Eosinophils # (Auto) 0.0, Basophils # (Auto) 0.0, Glomerular Filtration Rate > 60.0, Large Unclassified Cells # 0.1, Large Unclassified Cells % 1.3 CBC/BMP Laboratory Tests 10/27/16 04:36 Calcium Level 9.0, Aspartate Amino Transf (AST/SGOT) 24, Alanine Aminotransferase (ALT/SGPT) 65, Alkaline Phosphatase 66, Total Bilirubin 1.2 H, Total Protein 5.8 L, Albumin 2.7 L, Red Blood Count 5.19, Mean Corpuscular Volume 99.6 H, Mean Corpuscular Hemoglobin 31.3, Mean Corpuscular Hemoglobin Concent 31.4 L, Red Cell Distribution Width 12.9, Neutrophils (%) (Auto) 84.9 H , Lymphocytes (%) (Auto) 9.2 L, Monocytes (%) (Auto) 4.2, Eosinophils (%) (Auto ) 0.2, Basophils (%) (Auto) 0.3, Neutrophils # (Auto) 6.2, Lymphocytes # (Auto) 0.7 L, Monocytes # (Auto) 0.3, Eosinophils # (Auto) 0.0, Basophils # (Auto) 0.0 Microbiology Microbiology 10/20/16 Blood Culture - Final, Complete NO GROWTH AFTER 5 DAYS 10/20/16 Blood Culture - Final, Complete NO GROWTH AFTER 5 DAYS 10/20/16 Influenza Virus Type A Antigen - Final, Complete 10/20/16 Influenza Virus Type B Antigen - Final, Complete 10/20/16 Respiratory Virus Panel (PCR) ([facility]) - Final, Complete Respiratory Syncytial Virus 10/20/16 Urine Culture - Final, Complete BELKYS MONTGOMERY MD Oct 27, 2016 14:13
[2016-10-28] MEDS: ACETAMINOPHEN TAB 650MG DOSE (2X325MG) PO PRN (05:57)
[2016-10-28] MEDS: SLF 3 ML SYR IV SCH (05:57)
[2016-10-28] MEDS: LEVOTHYROXINE 0.075 MG TAB (75 MCG) PO SCH (05:57)
[2016-10-28 06:00] VITALS: BP 164/89
[2016-10-28 07:06] LABS: BASO % 0.3 % (0.0-1.0); EOS % 0.1 % (0.0-3.0); LARGE UNSTAINED CELL % 0.3 % (0.0-4.0); LYMPH # 0.5 K/mm3 (1.5-4.5); LYMPH % 4.2 % (24.0-44.0); MEAN CORPUSCULAR HEMOGLOBIN 29.4 pg (27.0-33.0); MEAN CORPUSCULAR HGB CONC 29.6 g/dl (32.0-36.5); MEAN CORPUSCULAR VOLUME 99.5 fl (80.0-96.0); MONO # 0.2 K/mm3 (0.0-0.8); MONO % 1.7 % (0.0-5.0); NEUTROPHILS % 93.4 % (36.0-66.0); RED CELL DISTRIBUTION WIDTH 12.7 % (11.5-14.5); WHITE BLOOD COUNT 11.8 K/mm3 (4.0-10.0)
[2016-10-28 07:19] LABS: ALBUMIN 2.7 GM/DL (3.2-5.2); ALBUMIN/GLOBULIN RATIO 0.93 (1.00-1.93); ALKALINE PHOSPHATASE 69 U/L (45-117); ALT/SGPT 60 U/L (12-78); AST/SGOT 25 U/L (15-37); BILIRUBIN,TOTAL 1.1 MG/DL (0.2-1.0); BLOOD UREA NITROGEN 20 MG/DL (7-18); CALCIUM LEVEL 9.1 MG/DL (8.8-10.2); CHLORIDE LEVEL 84 MEQ/L (98-107); CREATININE FOR GFR 0.53 MG/DL (0.55-1.02); GLOMERULAR FILTRATION RATE > 60.0 (>39); GLUCOSE, FASTING 251 MG/DL (83-110); SODIUM LEVEL 134 MEQ/L (136-145); TOTAL PROTEIN 5.6 GM/DL (6.4-8.2)
[2016-10-28 07:24] LABS: PLATELET COUNT, AUTOMATED 93 k/mm3 (150-450)
[2016-10-28 07:31] LABS: ANION GAP 2 MEQ/L (8-16)
[2016-10-28 07:32] LABS: CARBON DIOXIDE LEVEL 48 MEQ/L (21-32); POTASSIUM SERUM 5.4 MEQ/L (3.5-5.1)
[2016-10-28] MEDS: TIOTROPIUM INHALER/CAPSULE (SPIRIVA) INH SCH (07:56)
[2016-10-28] MEDS: ADVAIR HFA 230/21 INHALER INH SCH (07:57)
[2016-10-28] MEDS: HEPARIN SOD (PORCINE) 5000 UNITS/ML VIAL SQ SCH (09:00)
[2016-10-28] MEDS: NYSTATIN 500,000 U/5 ML SUSP UDC SS SCH (09:00)
[2016-10-28] MEDS ORDERED: predniSONE 20 MG TAB PO SCH (09:00)
[2016-10-28] MEDS ORDERED: ATRO1OPD PO (10:00)
[2016-10-28] MEDS ORDERED: LORA-376 PO (10:00)
[2016-10-28] MEDS ORDERED: MORP1SOL PO (10:00)
[2016-10-28] MEDS ORDERED: PRED10TA PO (10:12)
[2016-10-28] MEDS: DOCUSATE SODIUM 100 MG CAP PO SCH (10:33)
[2016-10-28] MEDS: guaiFENesin ER 600 MG TAB PO SCH (10:34)
[2016-10-28] MEDS ORDERED: ONDANSETRON 4 MG TAB (S0181) PO ONE (11:30)
--- NOTE | 2016-10-28 11:45 | DSES ---
DATE OF ADMISSION: 10/20/2016 DATE OF DISCHARGE: 10/28/2016 PRIMARY CARE PROVIDER: Blaze Islas MD ATTENDING PHYSICIAN: Dr. Valentino Villanueva HISTORY OF PRESENT ILLNESS: A 75-year-old female with past medical history significant for chronic obstructive pulmonary disease (COPD) oxygen dependent with 5-6 liters nasal cannula at home with bilateral positive airway pressure (BiPAP). Had a recent treatment by primary care provider for chronic obstructive pulmonary disease exacerbation as an outpatient with by mouth ceftin and prednisone. The patient subsequently developed some cold chills and coughing up yellow sputum with significant fatigue and worsening shortness of breath. Emergency medical services (EMS) was called. The patient presented to [facility] Emergency Room, hypoxic at 81% on 6 liters nasal cannula. The patient was subsequently admitted to the progressive care unit (PCU). She was significantly hypercapnic on arterial blood gas (ABG). HOSPITAL COURSE: Pulmonology was consulted. The patient remained on BiPAP. The patient was aggressively treated with nebulized therapy. Serial ABGs were obtained. She was placed on azithromycin and ceftriaxone and did receive a single dose of Zosyn in the emergency room. She also was noted to have a possibility of a right lower lobe pneumonia per pulmonology and was diagnosed with acute hypoxic hypercarbic respiratory failure. The patient continued with severe fatigue, difficulty breathing any time she came off BiPAP for meals. Did continue to have significant fevers, as well. ABGs continued with hypercapnia. On 10/25/2016, the patient was noted to have shortness of breath and decreased mental status. She had been given a dose of Ativan and thought that that was secondary to significant amount of change. ABG at that time showed that the patient was not significantly decompensated despite her abnormal baseline numbers. The patient was changed to Respironics to be used as bilevel, given higher flow oxygen, with hopes that it would be discontinued. She had worsened hypoxemia. The patient had a compensatory PCO2 close to 150. A prolonged discussion was held between Dr. Purcell and Ms. Baltazar, her , and children. It was indicated that the patient's significant end- stage lung disease with very poor prognosis, and it was not certain that the patient would survive this current hospitalization, the patient advised that she was tired and wanted to go home. The patient and family opted for hospice, and she will be transferred to the daughter's home today. On physical examination, the patient is resting comfortably, with BiPAP. Settings have been set by pulmonology, and the patient's daughter will maintain at home. ASSESSMENT: 1. End-stage chronic obstructive pulmonary disease with respiratory failure. 2. Community-acquired right lower lobe pneumonia. 3. History of hypertension. 4. History of hypothyroidism. 5. History of hyperlipidemia. 6. Diverticulosis. 7. Noninsulin dependent diabetes. PLAN: The patient will be discharged home. Diet is as tolerated. Activity is as tolerated. BiPAP per pulmonology instructions. MEDICATIONS: Are as follows: - atropine sulfate 1% solution, 1-2 drops by mouth every 2 hours as needed for terminal secretions - morphine sulfate concentrate 10 mg per 0.5 mL. She may have 0.25 to 1 mL by mouth every 2 hours as needed for pain or dyspnea. - prednisone 10 mg tablets. A tapering has been discussed. She will receive 40 mg by mouth daily through 10/31/2016, then will taper down to 20 mg by mouth daily from 11/01/2016 to 11/03/2016, and then 10 mg daily after that. Other medications include: - furosemide 40 mg by mouth daily - robafen 100 mg per 5 mL. She may take 10 mL by mouth twice a day. As discussed with the patient's daughter, the patient is discharged home with hospice at this time. Attending note: I saw and evaluated the patient on the day of discharge, and agree with the discharge plan of care as discussed and documented above by Sharon Tong. MD CHELLE Baron
[2016-10-31] MEDS ORDERED: predniSONE 20 MG TAB PO SCH (09:00)
[2016-11-03] MEDS ORDERED: predniSONE 10 MG TAB PO SCH (09:00)
== END 2016-10-28 11:50 | disposition hospice, home (50) | DRG 193 ==
LOC: EDBD 09:57 → M ED 12:21 → M ED INP 12:31 → M ICU 14:15 → M MS4PR 10-27 20:24
PROVIDERS: ADMIT General Practice; ATTEND Family Medicine
DX: J12.1 Respiratory syncytial virus pneumonia (principal); J96.21 Acute and chronic respiratory failure with hypoxia; J96.22 Acute and chronic respiratory failure with hypercapnia; J44.1 Chronic obstructive pulmonary disease with (acute) exacerbation; B37.0 Candidal stomatitis; E87.2 Acidosis; I10 Essential (primary) hypertension; E03.9 Hypothyroidism, unspecified; E78.5 Hyperlipidemia, unspecified; K57.90 Diverticulosis of intestine, part unspecified, without perforation or abscess without bleeding; E55.9 Vitamin D deficiency, unspecified; E11.9 Type 2 diabetes mellitus without complications; G47.33 Obstructive sleep apnea (adult) (pediatric); Z66 Do not resuscitate; Z99.81 Dependence on supplemental oxygen; Z87.891 Personal history of nicotine dependence; Z79.82 Long term (current) use of aspirin; Z79.52 Long term (current) use of systemic steroids; Z79.899 Other long term (current) drug therapy; Z88.8 Allergy status to other drugs, medicaments and biological substances; Z79.51 Long term (current) use of inhaled steroids